=== PATIENT | female | born 2005 | race Caucasian/White ===

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

== ENCOUNTER 2024-01-16 15:59 | Outpatient (CLI) | payer BC, SELFPAY ==
--- NOTE | 2024-01-16 16:08 | XRR_ITS ---
PROCEDURE INFORMATION: Exam: XR Chest Exam date and time: 01/16/2024 4:11 PM Age: 18 years old Clinical indication: Pain; Chest pressure; Patient HX: Palpations x 1.5 wks, tightness in chest; Additional info: R07.89 - other chest pain TECHNIQUE: Imaging protocol: Radiologic exam of the chest. Views: Frontal and lateral upright, 2 views. COMPARISON: CR XR chest 2V* [id number] 02/08/2023 2:56 PM FINDINGS: Lungs: Unremarkable. No consolidation. Pleural spaces: No pleural effusion. No pneumothorax. Heart/Mediastinum: Unremarkable. No cardiomegaly. Bones/joints: Mild rightward lower thoracic spinal curvature, stable. XR/XR chest 2V* [id number] IMPRESSION: No acute cardiopulmonary abnormality identified.
[2024-01-16 16:28] LABS: Basophils # 0.1 10^3/uL (0.0-0.1); Basophils % 0.6 %; Eosinophils # 0.1 10^3/uL (0.0-0.8); Eosinophils % 0.8 %; Hematocrit 38.2 % (36-47); Lymphocytes % 25.3 %; Mean Corpuscular Volume 85.1 fl (85-98); Mean Platelet Volume 10.5 fL (7.4-10.4); Monocytes # 0.6 10^3/uL (0.2-0.9); Monocytes % 8.1 %; Neutrophils # 5.15 10^3/uL (1.8-8.0); Neutrophils % 64.9 %; Nucleated Red Blood Cells % 0 %; Platelet Count 288 10^3/cmm (157-399); Red Blood Count 4.49 10^6/uL (3.85-5.65); White Blood Count 7.93 10^3/uL (4.5-13.0)
[2024-01-16 16:55] LABS: Alanine Aminotransferase 13 U/L (0-33); Albumin Level 4.1 g/dL (3.5-5.2); Alkaline Phosphatase 74 U/L (35-105); Anion Gap 14.8 (5-19); Aspartate Amino Transferase 14 U/L (0-32); Blood Urea Nitrogen 7 mg/dL (6-20); Calcium 8.9 mg/dL (8.5-10.5); Carbon Dioxide 24 mmol/L (22-29); Chloride 101 mmol/L (98-107); Chol HDL Ratio 3.71 mg/dL (0.0-4.40); Cholesterol 204 mg/dL (0-200); Glomerular Filtration Rate 158.9 mL/min (90-130); Glucose 83 mg/dL (65-115); HDL Cholesterol 55 mg/dL (60-100); LDL Cholesterol Calculated 115 mg/dL (50-170); LDL HDL Ratio 2.09 RATIO (0.00-3.22); Osmolality Calculated 279 mOsm/kg (285-295); Potassium 3.8 mmol/L (3.5-5.1); Sodium 136 mmol/L (136-145); Thyroid Stimulating Hormone 1.89 uIU/mL (0.27-4.20); Total Bilirubin 0.2 mg/dL (0.15-1.2); Total Protein 7.1 g/dL (6.6-8.7); Triglycerides 172 mg/dL (0-150)
[2024-01-16 17:51] LABS: 25 Hydroxy Vitamin D 21 ng/mL (30-100)
== END 2024-01-16 16:00 | disposition home or self-care (01) ==
LOC: LAB 16:01
PROVIDERS: PCP Nurse Practitioner; Visit Provider Nurse Practitioner
DX: R25.2 Cramp and spasm (principal); R07.89 Other chest pain; R00.2 Palpitations
CPT/HCPCS: 36415; 71046; 80053; 80061; 82306; 83735; 84439; 84443; 85025

== ENCOUNTER 2024-01-16 21:11 | Emergency (ER) | payer BC, SELFPAY ==
[2024-01-16 21:15] VITALS: BP 141/90; PULSE 101; RESP 15; O2SAT 100
--- NOTE | 2024-01-16 21:15 | ECG_ITS ---
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 Measurements Intervals [place] Rate: 100 P: 39 NC: 169 QRS: 75 QRSD: 96 T: 20 QT: 334 QTc: 431 Interpretive Statements SINUS TACHYCARDIA POSSIBLE RIGHT VENTRICULAR CONDUCTION DELAY [RSR (QR) IN V1/V2] NONSPECIFIC T-WAVE ABNORMALITY ABNORMAL RHYTHM ECG No previous ECG available for comparison Electronically Signed On 01-18-2024 0:14:56 CDT by Nixon Gillis M.D. [id number]
[2024-01-16 21:24] VITALS: BP 112/79; PULSE 91; RESP 16; O2SAT 100
--- NOTE | 2024-01-16 21:24 | PC.NURSE ---
pt on bedside nurse monitoring
--- NOTE | 2024-01-16 21:31 | W.ED.ARRPALP ---
HPI - Arrhythmia/Palpitations General: Chief Complaint: Arrhythmia/Palpitations Stated Complaint: Palpatations Time Seen by Provider: 01/16/24 21:18 Source: patient Mode of arrival: ambulatory Limitations: no limitations History of Present Illness: Patient is a 18-year-old female who presents to the emergency department complaining of palpitations for the past week and a half. Patient has had these before when she was younger, had Holter monitor at that time but did not result in any specific etiology or pathology. She states that a week and a half ago when these palpitations came on, she also found out that she was . She had lab work and x-ray done today, however her palpitations got too severe tonight that she presented for evaluation here in the emergency department. She notes that the palpitations feel like skipped beats and that it takes her breath away. She is also noting some central chest pain. She does not report any spells of syncope, abdominal pain, nausea or vomiting, or other symptoms at this time. She does not report any specific alleviating or exacerbating factors to her palpitations, stating that they are random. MD complaint: skipped beats Onset (ago): week(s) Duration: intermittent Associated symptoms: Deny nausea or vomiting Review of Systems General: Reports: 10 or more systems reviewed and unremarkable except in HPI and below Const: Denies: fever(s), chills or fatigue Eyes: Denies: change in vision ENMT: Denies: throat pain, ear or mastoid pain or nasal discharge Card: Reports: chest pain and palpitations; Denies: swelling of feet/ankles or lightheadedness Resp: Reports: dyspnea; Denies: productive cough or wheezing GI: Denies: abdominal pain, nausea, vomiting, diarrhea or constipation : Denies: flank pain, difficulty voiding, dysuria or urinary frequency Musc: Denies: neck pain, back pain or joint pain Skin/Breast: Denies: rash Neuro: Denies: headache(s), numbness in extremities or weakness in extremities PFSH ED PFSH: Medical History No pertinent family history Surgical History No pertinent past surgical history Family History Other Asthma Migraines Social History Smoking and tobacco/nicotine status: never used tobacco/nicotine Second hand smoke exposure: Yes Alcohol intake: never Substance/Drug Use: never Adopted: No Highest education level completed: 11th Grade Pets and animals: Yes Pets & animals: dog(s) Physical Exam Const: COMMON NORMALS: no acute distress, patient oriented x3 and no limitations GENERAL APPEARANCE: cooperative, comfortable and well developed ORIENTATION/CONSCIOUSNESS: Yes awake, Yes oriented to person, Yes oriented to place and Yes oriented to time HENMT: COMMON NORMALS: normocephalic, atraumatic and hearing grossly normal bilaterally HEAD & SCALP: normocephalic and atraumatic Eye: COMMON NORMALS: Equal, round and reactive pupils present, EOMs intact bilaterally and conjunctivae normal CONJUNCTIVA: Yes conjunctivae normal PUPIL: Yes Equal, round and reactive pupils present Neck/C-Spine: COMMON NORMALS: full ROM, supple and no JVD Resp: COMMON NORMALS: normal respiratory effort, No retractions, No use of accessory muscles and clear to auscultation bilaterally AUSCULTATION: clear to auscultation bilaterally Cardio: COMMON NORMALS: no JVD, regular rate, regular rhythm, No clicks present (Cardio), No murmurs present (Cardio) and No rub (Cardio) RATE: regular rate RHYTHM: regular rhythm GI: COMMON NORMALS: Normal to inspection, nondistended, normoactive bowel sounds present, Soft to palpation and non-tender AUSCULTATION: Yes normoactive bowel sounds PALPATION: Yes Soft to palpation RECTAL EXAM: deferred Extremity: COMMON NORMALS: normal to inspection, full ROM and capillary refill normal Neuro: COMMON NORMALS: patient oriented x3, moves all extremities, no focal motor deficits and no sensory deficits noted SENSORIUM/ORIENTATION: Yes oriented to person, Yes oriented to place and Yes oriented to time Psych: COMMON NORMALS: mental status grossly normal and Normal thought process present THOUGHT PROCESS: Normal thought process present Skin: COMMON NORMALS: no rashes or lesions noted GENERAL SKIN EXAM: no rashes or lesions noted Course Vital Signs: Vital signs: Vital Signs Pulse Rate 93 01/16/24 21:54 Respiratory Rate 19 H 01/16/24 21:54 Blood Pressure 124/76 01/16/24 21:54 Pulse Oximetry 100 01/16/24 21:54 Oxygen Delivery Me thod Room Air 01/16/24 21:54 MDM - Arrhythmia/Palpitations Medical Decision Making Patient seen for palpitations for the past week and a half. History of similar when she was younger. Currently is 6 weeks based on last normal menstrual period. Vitals on arrival showed her to be slightly tachycardic, rest of her vitals unremarkable. Initial EKG obtained did reveal sinus tachycardia however there is no acute abnormal rhythms noted. During monitoring of patient she was noted to have multiple PVCs. Her blood work was all negative, including negative troponin. Chest x-ray not obtained because she had 1 performed earlier that did not reveal any acute abnormalities. Urinalysis negative. It is thought at this time that patient's palpitations likely due to to physiologic change in , however she is instructed to follow-up with OB as planned for further evaluation of this. She has not had any episodes of palpitations while here in the emergency department. Vitals have remained stable throughout ED course. No concern for concerning cardiac abnormality or etiology at this time. Care of patient discussed with supervising ED physician Dr. Becker, who agrees with disposition. Patient discharged home with strict return precautions. Lab Data 01/16/24 21:52 01/16/24 21:52 Laboratory Results WBC 8.85 10^3/uL (4.5-13.0) 01/16/24 21:52 RBC 4.59 10^6/uL (3.85-5.65) 01/16/24 21:52 Hgb 13.00 g/dL (12.4-14.8) 01/16/24 21:52 Hct 39.4 % (36-47) 01/16/24 21:52 MCV 85.8 fl (85-98) 01/16/24 21:52 MCH 28.3 pg (27-33) 01/16/24 21:52 MCHC 33.0 g/dL (30-55) 01/16/24 21:52 RDW 13.1 % (12.1-15.1) 01/16/24 21:52 Plt Count 298 10^3/cmm (157-399) 01/16/24 21:52 MPV 10.5 fL (7.4-10.4) H 01/16/24 21:52 Neut % (Auto) 66.0 % 01/16/24 21:52 Lymph % (Auto) 25.6 % 01/16/24 21:52 Gibson % (Auto) 6.9 % 01/16/24 21:52 Eos % (Auto) 0.9 % 01/16/24 21:52 Baso % (Auto) 0.5 % 01/16/24 21:52 Neut # (Auto) 5.84 10^3/uL (1.8-8.0) 01/16/24 21:52 Lymph # (Auto) 2.3 10^3/uL (1.5-6.5) 01/16/24 21:52 Gibson # (Auto) 0.6 10^3/uL (0.2-0.9) 01/16/24 21:52 Eos # (Auto) 0.1 10^3/uL (0.0-0.8) 01/16/24 21:52 Baso # (Auto) 0.0 10^3/uL (0.0-0.1) 01/16/24 21:52 Nucleated RBC % (auto) 0 % 01/16/24 21:52 Nucleated RBCs # 0.0 /100WBC 01/16/24 21:52 Sodium 137 mmol/L (136-145) 01/16/24 21:52 Potassium 3.8 mmol/L (3.5-5.1) 01/16/24 21:52 Chloride 101 mmol/L (98-107) 01/16/24 21:52 Carbon Dioxide 25 mmol/L (22-29) 01/16/24 21:52 Anion Gap 14.8 (5-19) 01/16/24 21:52 BUN 6 mg/dL (6-20) 01/16/24 21:52 Creatinine 0.5 mg/dL (0.5-0.9) 01/16/24 21:52 GFR Calculation 158.9 mL/min (90-130) H 01/16/24 21:52 Glucose 77 mg/dL (65-115) 01/16/24 21:52 Calculated Osmolality 280 mOsm/kg (285-295) L 01/16/24 21:52 Calcium 9.0 mg/dL (8.5-10.5) 01/16/24 21:52 Magnesium 1.9 mg/dL (1.7-2.2) 01/16/24 21:52 Total Bilirubin 0.2 mg/dL (0.15-1.2) 01/16/24 21:52 AST 13 U/L (0-32) 01/16/24 21:52 ALT 13 U/L (0-33) 01/16/24 21:52 Alkaline Phosphatase 77 U/L (35-105) 01/16/24 21:52 Troponin T Baseline < 6 ng/L (0-10) 01/16/24 21:52 Total Protein 6.5 g/dL (6.6-8.7) L 01/16/24 21:52 Albumin 4.1 g/dL (3.5-5.2) 01/16/24 21:52 Globulin 2.4 g/dL (1.3-4.6) 01/16/24 21:52 TSH 2.11 uIU/mL (0.27-4.20) 01/16/24 21:52 HCG, Qual Positive (Negative) H 01/16/24 21:52 Urine Color Yellow (Yellow) 01/16/24 21:40 Urine Appearance Clear (CLEAR) 01/16/24 21:40 Urine pH 6 (5-7) 01/16/24 21:40 Ur Specific [place] 1.010 (1.005-1.030) 01/16/24 21:40 Urine Protein Neg (Negative) 01/16/24 21:40 Urine Glucose (UA) Norm (Normal) 01/16/24 21:40 Urine Ketones Negative (Negative) 01/16/24 21:40 Urine Blood Neg (Negative) 01/16/24 21:40 Urine Nitrate Negative (Negative) 01/16/24 21:40 Urine Bilirubin Neg (Negative) 01/16/24 21:40 Urine Urobilinogen Norm mg/dL (Negative) 01/16/24 21:40 Ur Leukocyte Esterase Negative (Negative) 01/16/24 21:40 No radiology studies performed this visit Discharge Plan Discharge Patient Disposition: Home Clinical Impression: Palpitations Condition: Stable Prescriptions: No Action paroxetine HCl 10 mg tablet 10 mg PO DAILY Qty: 30 2RF Rx Instructions: 1 tab by mouth daily multivitamin with iron Tablet 1 tab PO DAILY albuterol sulfate [ProAir HFA] 90 mcg/actuation HFA aerosol inhaler 2 puff inhalation Q4H PRN (Reason: shortness of breath, chest tightness or wheezing) Qty: 8.5 3RF cetirizine 10 mg tablet 10 mg PO DAILY hydroxyzine HCl 10 mg tablet 5 - 10 mg PO 3XD PRN (Reason: Anxiety) FeroSul 325 mg (65 mg iron) tablet 325 mg PO TID Discharge Orders: Discharge ED (Routine); Ordered 01/16/24 Ordered By: Cisco Wray Referrals: Palak Sanchez FNP-BC [Primary Care Provider] - Discharge Diet: Usual diet Discharge Activity: Increase activity as tolerated Patient Instructions: Heart Palpitations (ED) Activity Restrictions/Additional Instructions: Follow-up with OB as discussed. Plenty of fluids. If you develop any new or concerning symptoms, please return for reevaluation. Coding Level of Care Code ED Paid Search Marketing Strategist for Estephania Reeder
[2024-01-16 21:54] VITALS: BP 124/76; PULSE 93; RESP 19; O2SAT 100
[2024-01-16 22:18] LABS: Basophils % 0.5 %; Eosinophils # 0.1 10^3/uL (0.0-0.8); Eosinophils % 0.9 %; Hematocrit 39.4 % (36-47); Lymphocytes # 2.3 10^3/uL (1.5-6.5); Lymphocytes % 25.6 %; Mean Corpuscular Hemoglobin 28.3 pg (27-33); Mean Corpuscular Volume 85.8 fl (85-98); Mean Platelet Volume 10.5 fL (7.4-10.4); Monocytes # 0.6 10^3/uL (0.2-0.9); Monocytes % 6.9 %; Neutrophils # 5.84 10^3/uL (1.8-8.0); Nucleated Red Blood Cells % 0 %; Platelet Count 298 10^3/cmm (157-399); Red Blood Count 4.59 10^6/uL (3.85-5.65); Red Cell Distribution Width 13.1 % (12.1-15.1); White Blood Count 8.85 10^3/uL (4.5-13.0)
[2024-01-16 22:19] LABS: Add Urine Microscopic? NO; Charge for UA Resulting for Rev
[2024-01-16 22:24] LABS: Bilirubin Urine Neg (Negative); Blood Urine Neg (Negative); Glucose Urine UA Norm (Normal); Ketones Urine Negative (Negative); Leukocyte Esterase Urine Negative (Negative); Nitrate Urine Negative (Negative); Protein Urine Neg (Negative); Urine Appearance Clear (CLEAR); Urine Color Yellow (Yellow); Urobilinogen Urine Norm (Negative); pH Urine 6 (5-7)
[2024-01-16 22:36] LABS: Troponin(5th) Baseline < 6 ng/L (0-10)
[2024-01-16 22:46] LABS: Alanine Aminotransferase 13 U/L (0-33); Albumin Level 4.1 g/dL (3.5-5.2); Alkaline Phosphatase 77 U/L (35-105); Anion Gap 14.8 (5-19); Aspartate Amino Transferase 13 U/L (0-32); Blood Urea Nitrogen 6 mg/dL (6-20); Carbon Dioxide 25 mmol/L (22-29); Chloride 101 mmol/L (98-107); Creatinine Clr Calc Pharmacy 216.2067; Globulin 2.4 g/dL (1.3-4.6); Glomerular Filtration Rate 158.9 mL/min (90-130); Glucose 77 mg/dL (65-115); Magnesium 1.9 mg/dL (1.7-2.2); Osmolality Calculated 280 mOsm/kg (285-295); Potassium 3.8 mmol/L (3.5-5.1); Sodium 137 mmol/L (136-145); Thyroid Stimulating Hormone 2.11 uIU/mL (0.27-4.20); Total Bilirubin 0.2 mg/dL (0.15-1.2); Total Protein 6.5 g/dL (6.6-8.7)
[2024-01-16 22:48] LABS: HCG, Serum Qual Positive (Negative)
[2024-01-16 23:44] VITALS: BP 114/68; PULSE 81; RESP 20; O2SAT 81
== END 2024-01-16 23:45 | disposition home or self-care (01) ==
PROVIDERS: Emergency Provider Physician Assistant; PCP Nurse Practitioner
DX: R00.2 Palpitations (principal); Z77.22 Contact with and (suspected) exposure to environmental tobacco smoke (acute) (chronic)
CPT/HCPCS: 36415; 80053; 81003; 83735; 84443; 84484; 84703; 85025; 93005; 99284

== ENCOUNTER 2024-02-13 13:55 | Outpatient (CLI) | payer BC, MEDICAID, SELFPAY ==
--- NOTE | 2024-02-13 14:00 | USCV_ITS ---
Khalida Delgadillo Age: 18 Gender: F : 2005 Exam Date: 02/13/2024 14:06 Ordering Phys: Palak Sanchez STRATEGY SPECIALIST-BC Technologist: Exam Location[place] [facility] [place]: irregular heart beat BP: 125 / 78 HR: 93 Rhythm: Sinus Technical Quality: Adequate MEASUREMENTS (Male / Female) Normal Values 2D ECHO LV Diastolic Diameter PLAX 4.3 cm 4.2 - 5.9 / 3.9 - 5.3 cm IVS Diastolic Thickness 1.1 cm 0.6 - 1.0 / 0.6 - 0.9 cm IVS Systolic Thickness 1.6 cm LVPW Diastolic Thickness 1.1 cm 0.6 - 1.0 / 0.6 - 0.9 cm LVPW Systolic Thickness 1.6 cm LVOT Diameter 2.0 cm LV Ejection Fraction 2D Teich 67.5 % LV Ejection Fraction MOD 4C 59.7 % LA Diameter 3.0 cm RA Systolic Volume 4C AL 49.7 ml RA Systolic Volume 4C MOD 45.1 ml Aorta at Sinotubular Diameter 1.9 cm M-MODE LA Ao Ratio MM 1.2 AV Cusp Separation MM 2.2 cm DOPPLER AV Peak Velocity 143.0 cm/s LVOT Peak Velocity 105.0 cm/s AV Area Cont Eq vti 2.8 cm squared AV Area Cont Eq pk 2.3 cm squared MV Peak Velocity 105.0 cm/s MV Area PHT 4.9 cm squared Mitral E to A Ratio 1.6 TV Peak Velocity 139.5 cm/s TR Peak Velocity 149.0 cm/s TR Peak Gradient 8.9 mmHg TV Peak E Velocity 124.0 cm/s Right Atrial Pressure 3.0 mmHg Pulmonary Artery Systolic Pressu 11.9 mmHg PV Peak Velocity 136.0 cm/s FINDINGS Left Ventricle Left ventricle is normal in size. LV systolic function is normal with EF 55 to 60%. No regional wall motion arteries are seen Right Ventricle Normal in size and function Right Atrium Normal in size Left Atrium Normal in size Mitral Valve Structurally normal mitral valve. Trace mitral regurgitation Aortic Valve Structurally normal aortic valve. No significant stenosis or regurgitation. Tricuspid Valve Insufficient TR jet to calculate RVSP Pulmonic Valve Not well-visualized Pericardium Normal Aorta Normal in size IVC Grossly normal CONCLUSIONS LV systolic function is normal with EF of 55 to 60%. Trace mitral regurgitation No comparison studies are available Ananth Pichardo MD (Electronically Signed) Final Date: 27 February 2024 18:05 S
== END 2024-02-13 13:56 | disposition home or self-care (01) ==
LOC: RAD 13:56
PROVIDERS: PCP Nurse Practitioner; Visit Provider Nurse Practitioner
DX: R00.2 Palpitations (principal); I34.0 Nonrheumatic mitral (valve) insufficiency
CPT/HCPCS: 93306

== ENCOUNTER 2024-06-01 18:32 | Outpatient (CLI) | payer BC, MEDICAID, SELFPAY ==
[2024-06-01] VITALS (10 sets, daily range): BP systolic 110–133; BP diastolic 53–73; PULSE 71–96; RESP 18; O2SAT 99; BMI 38.9
[2024-06-01] MEDS: ibuprofen 800 mg tablet PO (19:24)
[2024-06-01] MEDS: promethazine 25 mg/mL SDV 1 mL IM (20:49)
[2024-06-01] MEDS: diphenhydrAMINE 50 mg/mL SDV 1mL 25 MG IM (20:50)
== END 2024-06-01 21:25 | disposition home or self-care (01) ==
LOC: OPOB 18:36 → OBGYN 18:37
PROVIDERS: PCP Nurse Practitioner; Visit Provider Family Medicine
DX: O36.8190 Decreased fetal movements, unspecified trimester, not applicable or unspecified (principal); Z3A.00 Weeks of gestation of pregnancy not specified
CPT/HCPCS: 59025; 96372; 99211; J1200; J2550

== ENCOUNTER 2024-06-03 16:42 | Outpatient (CLI) | payer BC, MEDICAID, SELFPAY ==
[2024-06-03 16:57] VITALS: BP 111/59; PULSE 89; RESP 16; TEMP 36.6
== END 2024-06-03 17:35 | disposition home or self-care (01) ==
LOC: OPOB 16:43 → OBGYN 16:43
PROVIDERS: PCP Nurse Practitioner; Visit Provider Family Medicine
DX: O26.899 Other specified pregnancy related conditions, unspecified trimester (principal); Z3A.00 Weeks of gestation of pregnancy not specified; R51.9 Headache, unspecified; H53.9 Unspecified visual disturbance
CPT/HCPCS: 99211

== ENCOUNTER 2024-06-03 17:15 | Emergency (ER) | payer BC, MEDICAID, SELFPAY ==
[2024-06-03 17:24] VITALS: BP 106/73; PULSE 91; RESP 18; TEMP 36.9; O2SAT 96; BMI 38.4
--- NOTE | 2024-06-03 19:31 | ED_ITS ---
HPI - Headache General: Chief Complaint: Headache Stated Complaint: migraine (26 wks preg) OB sent Time Seen by Provider: 06/03/24 18:58 Source: patient Mode of arrival: ambulatory Limitations: no limitations History of Present Illness: 18-year-old female is currently 26 weeks states that she had a history of headaches in the past states she has had a migraine for the last 4 to 5 days. States gradually worsened and started very gradually denies any thunderclap headache she has photophobia and phonophobia rates her headache an 8 out of 10 currently she denies any fever denies any neck stiffness or pain Associated symptoms: Deny chest pain, fever(s), nausea, rash or vomiting Related Data Home Medications Medication Instructions Recorded Confirmed hydroxyzine HCl 10 mg tablet 5 - 10 mg PO 3XD PRN Anxiety 08/30/23 06/01/24 docosahexaenoic acid 200 mg 200 mg PO DAILY 02/21/24 06/01/24 capsule ( DHA) sertraline 50 mg tablet 50 mg PO DAILY 02/21/24 06/01/24 cetirizine 10 mg tablet 10 mg PO DAILY 06/01/24 06/01/24 propranolol 40 mg tablet 40 mg PO BID 06/01/24 06/01/24 Allergies Allergy/AdvReac Type Severity Reaction Status Date / Time amoxicillin [From Augmentin] Allergy rash Verified 06/03/24 17:28 clavulanic acid Allergy rash Verified 06/03/24 17:28 [From Augmentin] orphenadrine [From Norflex] Allergy ALGY-Rash Verified 06/03/24 17:28 tramadol AdvReac Intermediate ADR-Migrain Verified 06/03/24 17:28 e Review of Systems Const: Denies: fever(s), chills, body aches or change in appetite Eyes: Denies: blurry vision ENMT: Denies: throat pain or dental pain Card: Denies: chest pain Resp: Denies: dyspnea GI: Denies: abdominal pain, nausea, vomiting or diarrhea Musc: Denies: neck pain or back pain Skin/Breast: Denies: rash Neuro: Reports: headache(s) PFSH ED PFSH: Medical History No pertinent family history Surgical History No pertinent past surgical history Family History Other Asthma Migraines Social History Smoking and tobacco/nicotine status: never used tobacco/nicotine Second hand smoke exposure: Yes Alcohol intake: never Substance/Drug Use: never Adopted: No Highest education level completed: 11th Grade Pets and animals: Yes Pets & animals: dog(s) Physical Exam Const: COMMON NORMALS: no acute distress, patient oriented x3 and healthy appearing HENMT: COMMON NORMALS: normocephalic and atraumatic HEAD & SCALP: normocephalic and atraumatic Eye: COMMON NORMALS: Equal, round and reactive pupils present and EOMs intact bilaterally PUPIL: Yes Equal, round and reactive pupils present Neck/C-Spine: COMMON NORMALS: full ROM, supple and no meningeal signs Chest: COMMONS NORMALS: normal inspection of the chest Resp: COMMON NORMALS: normal respiratory effort Cardio: COMMON NORMALS: regular rate, regular rhythm and No murmurs present (Cardio) RATE: regular rate RHYTHM: regular rhythm Extremity: COMMON NORMALS: normal to inspection and full ROM Neuro: COMMON NORMALS: patient oriented x3, moves all extremities and no focal motor deficits MENINGEAL SIGNS: Yes no meningeal signs Psych: COMMON NORMALS: mental status grossly normal, Normal thought process present and cooperative THOUGHT PROCESS: Normal thought process present Skin: COMMON NORMALS: no rashes or lesions noted and no wounds GENERAL SKIN EXAM: no rashes or lesions noted Course Vital Signs: Vital signs: Vital Signs Temperature 98.5 F 06/03/24 17:24 Pulse Rate 87 06/03/24 19:50 Respiratory Rate 16 06/03/24 19:50 Blood Pressure 123/58 06/03/24 19:50 Pulse Oximetry 96 06/03/24 19:50 Oxygen Delivery Me thod Room Air 06/03/24 19:50 MDM - Headache Medical Decision Making Patient presents here with headaches likely migraine headache she feels much improved here no signs of subarachnoid hemorrhage or meningitis patient stable for discharge follow-up PCP return if worsening she understands and agrees to plan. Medical Records I reviewed the patient's medical records. No radiology studies performed this visit Discharge Plan Discharge Patient Disposition: Home Clinical Impression: Headache Condition: Stable Prescriptions: No Action DHA 200 mg capsule 200 mg PO DAILY sertraline 50 mg tablet 50 mg PO DAILY cetirizine 10 mg Tablet 10 mg PO DAILY propranolol 40 mg Tablet 40 mg PO BID hydroxyzine HCl 10 mg tablet 5 - 10 mg PO 3XD PRN (Reason: Anxiety) Discharge Orders: Discharge ED (Routine); Ordered 06/03/24 Ordered By: Robert Holcomb Referrals: Palak Sanchez FNP-CECE [Primary Care Provider] - Discharge Diet: Advance as tolerated Discharge Activity: Resume usual activity Patient Instructions: General Headache (ED) Coding Level of Care Code ED General Assembler for Estephania Reeder
[2024-06-03 19:50] VITALS: BP 123/58; PULSE 87; RESP 16; O2SAT 96
[2024-06-03] MEDS: diphenhydrAMINE 50 mg/mL SDV 1mL IVP (19:54)
[2024-06-03] MEDS: metoclopramide 5 mg/mL SDV 2 mL 10 MG IVP (19:55)
[2024-06-03 20:28] VITALS: BP 122/68; PULSE 91; RESP 16; O2SAT 97
== END 2024-06-03 20:29 | disposition home or self-care (01) ==
PROVIDERS: Emergency Provider Emergency Medicine; PCP Nurse Practitioner
DX: R51.9 Headache, unspecified (principal); Z3A.28 28 weeks gestation of pregnancy
CPT/HCPCS: 96374; 96375; 99284; J1200; J2765

== ENCOUNTER 2024-06-17 16:22 | Oncology outpatient (recurring) (ONCR) | payer BC, SELFPAY ==
[2024-06-17 00:30] VITALS: BP 118/78; PULSE 94; RESP 16; TEMP 36.6; O2SAT 96
[2024-06-17] MEDS: rho(d) immune globulin 1,500 unit Syringe 1500 UNIT IM (16:33)
[2024-06-17 16:41] VITALS: BP 118/78; PULSE 94; RESP 16; TEMP 36.4; O2SAT 96
== END 2024-06-22 23:59 | disposition home or self-care (01) ==
LOC: ONCMED 16:22
PROVIDERS: PCP Nurse Practitioner; Visit Provider Family Medicine
DX: O26.893 Other specified pregnancy related conditions, third trimester (principal); Z79.899 Other long term (current) drug therapy; Z67.91 Unspecified blood type, Rh negative
CPT/HCPCS: 96372; J2790

== ENCOUNTER 2024-08-17 21:43 | Outpatient (CLI) | payer BC, MEDICAID, SELFPAY ==
[2024-06-03 16:57] VITALS: RESP 16; TEMP 36.6
[2024-08-17] VITALS (9 sets, daily range): BP systolic 109–114; BP diastolic 59; PULSE 80–100; RESP 16; TEMP 35.6; O2SAT 97–98; BMI 40.6
== END 2024-08-17 22:28 | disposition home or self-care (01) ==
LOC: OPOB 21:43 → OBGYN 21:44
PROVIDERS: PCP Nurse Practitioner; Visit Provider Family Medicine
DX: O16.9 Unspecified maternal hypertension, unspecified trimester (principal); Z3A.00 Weeks of gestation of pregnancy not specified; R10.9 Unspecified abdominal pain; R51.9 Headache, unspecified
CPT/HCPCS: 59025; 99211

== ENCOUNTER 2024-08-23 14:54 | Outpatient (CLI) | payer BC, MEDICAID, SELFPAY ==
[2024-08-23 15:05] VITALS: BMI 41.9
[2024-08-23 15:06] VITALS: BP 131/70; PULSE 95
[2024-08-23 15:26] VITALS: BP 117/58; PULSE 87
[2024-08-23 15:46] VITALS: BP 121/60; PULSE 97
[2024-08-23 16:06] VITALS: BP 121/59; PULSE 90
== END 2024-08-23 16:15 | disposition home or self-care (01) ==
LOC: OPOB 14:54 → OBGYN 14:55
PROVIDERS: PCP Family Medicine; Visit Provider Family Medicine
DX: O26.899 Other specified pregnancy related conditions, unspecified trimester (principal); Z3A.00 Weeks of gestation of pregnancy not specified; N89.8 Other specified noninflammatory disorders of vagina
CPT/HCPCS: 59025; 83986; 99211

== ENCOUNTER 2024-08-25 19:44 | Outpatient (CLI) | payer BC, MEDICAID, SELFPAY ==
[2024-08-25] VITALS (57 sets, daily range): BP systolic 102–139; BP diastolic 56–81; PULSE 86–117; RESP 16; TEMP 35.5–36.1; O2SAT 96–100; BMI 41.8
== END 2024-08-25 23:24 | disposition home or self-care (01) ==
LOC: OPOB 19:45 → OBGYN 19:45
PROVIDERS: PCP Family Medicine; Visit Provider Family Medicine
DX: O26.899 Other specified pregnancy related conditions, unspecified trimester (principal); Z3A.00 Weeks of gestation of pregnancy not specified; R10.9 Unspecified abdominal pain
CPT/HCPCS: 59025; 99211

== ENCOUNTER 2024-09-03 19:29 | Inpatient (IN) | payer BC, MEDICAID, SELFPAY ==
--- NOTE | 2024-08-20 11:37 | ANES.PREANE2 ---
Pre-Anesthetic Assessment Height/Weight: Height 1.65 m Epdiural Familial anesthetic complications: None Was Beta Jeanne taken within 24 hours: N/A Was Clonidine taken within 24 hours: N/A Social No alcohol and No tobacco Exam alert, oriented x 3, clear to auscultation bilaterally and regular rate & rhythm Airway Mallampati: Class I Dentition: full Pulmonary Asthma GI Gastroesophageal Reflux Disease Metabolic Morbid Obesity Anesthetic Plan ASA status: 2 Anesthesia: Regional (specify below) Risk of > 500 ml blood loss (7ml/kg in children): Yes, adequate IV access and fluids planned Medications/Allergies Home Medications Medication Instructions Recorded Confirmed Last Taken Type docosahexaenoic acid 200 mg 200 mg PO DAILY 02/21/24 08/17/24 08/17/24 History capsule ( DHA) sertraline 50 mg tablet 50 mg PO DAILY 02/21/24 08/17/24 08/17/24 History cetirizine 10 mg tablet 10 mg PO DAILY 06/01/24 08/17/24 08/17/24 History propranolol 40 mg tablet 40 mg PO BID 06/01/24 08/17/24 08/17/24 History famotidine 20 mg PO BID 08/17/24 08/17/24 08/17/24 History famotidine 20 mg tablet 20 mg 08/17/24 Unknown History Allergies Allergy/AdvReac Type Severity Reaction Status Date / Time amoxicillin [From Augmentin] Allergy rash Verified 08/17/24 22:15 clavulanic acid Allergy rash Verified 08/17/24 22:15 [From Augmentin] orphenadrine [From Norflex] Allergy ALGY-Rash Verified 08/17/24 22:15 tramadol AdvReac Intermediate ADR-Migrain Verified 08/17/24 22:15 e [facility] Anesthesia Medical History No pertinent family history Surgical History No pertinent past surgical history Family History Other Asthma Migraines Social History Smoking and tobacco/nicotine status: never used tobacco/nicotine Second hand smoke exposure: Yes Alcohol intake: never Substance/Drug Use: never Adopted: No Highest education level completed: 11th Grade Pets and animals: Yes Pets & animals: dog(s) Data Anesthesia Cardiac Studies: Echocardiogram 02/13/24 Holter Monitor 06/04/24
--- OUTSIDE RECORDS SUMMARY | 2024-09-03 19:33 | XMS_ITS | Clinical Summary ---
Author Organization [facility] Address [address] [address] Phone Care Team Providers Care Resource Recovery Specialist Name Role Phone Unavailable Primary Care Provider Unavailabl e Social History Tobacco Use Types Packs/Day Years Used Date Smoking Tobacco: Never Assessed Comments Unknown Sex and Gender Information Value Date Recorded Sex Assigned at Not on file Legal Sex Female 12:48 PM CDT Gender Identity Not on file Sexual Orientation Not on file Plan of Treatment Health Maintenance Due Date Last Done Comments CHLAMYDIA SCREENING (ANNUAL) 11-24 YEARS 10/20/2015 HPV VACCINES (1 - 3-dose series) 10/20/2019 DTAP/TDAP/TD VACCINES (1 - Tdap) 10/20/2023 HEPATITIS B VACCINES (1 of 3 - 19+ 3-dose series) 10/20/2023 INFLUENZA VACCINE (#1) 2024 PNEUMOCOCCAL VACCINE 0-64 YEARS Aged Out No longer eligible based on patient's age to complete this topic
--- OUTSIDE RECORDS SUMMARY | 2024-09-03 19:33 | XMS_ITS | Continuity of Care Document ---
Author Organization [facility] Ramón Arnold [facility] Sergio Galan, [facility] ([facility]) Address [address] [place] [address] Care Team Providers Care Water Rights Specialist Name Role Phone BREANNA EVANGELISTA Primary Care Provider Unavaila ble Assessment No assessment recorded. Plan of Treatment Reminders Order Date Submit Date Provider Last Modified By Organization Details Last Modified Time Details Appointments RETURN OB 2024 03:00P M Breanna Evangelista MD Not available Not available Not available RETURN OB 2024 03:50P Eliot Evangelista MD Not available Not available Not available Lab streptoco ccus group B, culture, unspecifi ed specimen 2024 025 [facility], [address] [place] [address] 248, [facility] [address] [place], [address], 08/11/2024 07:09:12 Referral None recorded. Procedures None recorded. Surgeries None recorded. Imaging None recorded. Medication Orders None recorded. Patient TargetsNo targets recorded. Patient InstructionsNo instructions recorded. Reason for Referral None Reported. Results Created Date Observation Date Name Description Value Unit Range Abnormal Flag Note LastModifiedBy Organization Detail LastModifiedTime 04/25/2004/23/2024 US, obste tric, 2nd trime ster No observ ation record ed. [facility] [address] [place], [address], 04/29/2024 17:11:42 06/05/20 elect rocar diogr am No observ ation record ed. [email or web address] Not Available 2023 11:36:57 Result Notes None recorded. Problems Name Problem SNOMED Code Status Onset Date Resolution Date Notes Provider Name and Address Organization Details Recorded Time Palpitation s 95529855 Active 2023 Lorenzo Evans MD [address] [place] [address], [phone], [facility] 4 16:14:03 Normal in multigravid a 4043266282507 06 Active 2023 LANDON rizo [facility] 4 18:33:04 Normal in multigravid a 3716363177554 06 Active 2023 LANDON rizo [facility] 4 18:33:04 Cough 30530126 Active 2024 Lorenzo Evans MD [address] [place] [address], [phone] 5, [facility] 5 15:49:05 Viral upper respiratory tract infection 557768245 Active 2024 Lorenzo Evans MD [address] [place] [address], [phone], [facility] 5 15:49:12 Problem Notes None recorded. Medical Equipment None Reported. Allergies Allergen ID Allergen Name Allergen Category Reaction Reaction Severity Criticality Documentation Date Start Date Code Code System Note Provider Name and Address Organization Details Recorded Time 43399 Augmentin medicatio n Not available Not available Not available 08/30/2023 59971 2 RxNorm TREBA NEUSCHWAN CHINMAY sallie [facility] 4 14:51:46 31368 Norflex medicatio n Not available Not available Not available 08/30/2023 33826 4 RxNorm TREBA NEUSCHWAN CHINMAY sallie [facility] 4 14:52:14 24736 tramadol medicatio n Not available Not available Not available 02/16/2024 24826 RxNorm HARVINDER MOY [facility], [facility] 14:26:37 Medications Name Sig Start Date Stop Date Status Note LastModified by Organization Details LastModified Time vitd3 2000iusft [id number] take 1 capsule BY MOUTH EVERY DAY FOR 42 DAYS 05/07 completed Not Available Not Available Not Available paroxetin e 10 mg tablet TAKE 1 TABLET BY MOUTH EVERY DAY 02/15 completed dose increase Not Available Not Available Not Available clindamyc in HCl 300 mg capsule TAKE 1 CAPSULE BY MOUTH 4 TIMES DAILY FOR 7 DAYS 02/15 completed Not Available Not Available Not Available cetirizin e 10 mg tablet TAKE 1 TABLET BY MOUTH EVERY DAY active Not Available Not Available No t Available ibuprofen 800 mg tablet TAKE 1 TABLET BY MOUTH EVERY 8 HOURS NEEDED FOR PAIN 02/15 completed Not Available Not Available Not Available hydrocodo ne 5 mg-acetam inophen 325 mg tablet TAKE 1 TABLET BY MOUTH EVERY 6 HOURS NEEDED FOR PAIN FOR FIVE DAYS 02/15 completed Not Available Not Available Not Available prednison e 20 mg tablet TAKE 2 TABLETS BY MOUTH ONCE DAILY FOR 4 DAYS THEN 1 ONCE DAILY UNTIL GONE 02/15 completed Not Available Not Available Not Available sertralin e 100 mg tablet TAKE 1 TABLET BY MOUTH EVERY DAY 2024 active vo JR/tn Not Available Not Available Not Avai lable naproxen 250 mg tablet TAKE 1 TABLET BY MOUTH TWICE DAILY NEEDED FOR PAIN do not take with other nsaids 02/15 completed Not Available Not Available Not Available sulfameth oxazole 800 mg-trimet hoprim 160 mg tablet TAKE 1 TABLET BY MOUTH TWICE DAILY for 10 days 02/15 completed Not Available Not Available Not Available tramadol 50 mg tablet TAKE 1 TABLET BY MOUTH EVERY 6 HOURS NEEDED FOR PAIN 02/15 completed Not Available Not Available Not Available propranol ol 40 mg tablet TAKE 1 TABLET BY MOUTH TWICE DAILY NEEDED 2024 active vo JR/tn Not Available Not Available Not Avai lable famotidin e 20 mg tablet TAKE 1 TABLET BY MOUTH TWICE DAILY active Not Available Not Available No t Available methocarb barbra 750 mg tablet TAKE 1 TABLET BY MOUTH EVERY 8 HOURS NEEDED FOR MUSCLE SPASMS or pain 08/30 completed Not Available Not Available Not Available paroxetin e 20 mg tablet TAKE 1 TABLET BY MOUTH EVERY DAY 03/12 completed switched meds Not Available Not Available Not Available erythromy royal 5 mg/gram (0.5 %) eye ointment apply into THE eye(s) FOUR TIMES DAILY for 7 days 02/15 completed Not Available Not Available Not Available mupirocin 2 % topical ointment apply a thin layer TO clean dry SKIN of affected areas THREE TIMES DAILY FOR SEVEN DAYS 02/15 completed Not Available Not Available Not Available azelastin e 137 mcg (0.1 %) nasal spray USE 1 SPRAY IN EACH NOSTRIL TWICE DAILY USE STERILE SALINE FIRST 08/30 completed Not Available Not Available Not Available ibuprofen 600 mg tablet TAKE 1 TABLET BY MOUTH THREE TIMES DAILY NEEDED FOR PAIN 08/30 completed Not Available Not Available Not Available albuterol sulfate HFA 90 mcg/actua tion aerosol inhaler inhale TWO puffs BY MOUTH EVERY 4 HOURS as needed for SHORTNES S OF BREATH, CHEST tightnes s or wheezing 02/15 completed Not Available Not Available Not Available propranol ol 20 mg tablet 05/21 completed Not Available Not Available Not Available hydroxyzi ne HCl 10 mg tablet TAKE ONE-HALF TO 1 TABLET BY MOUTH EVERY 6 TO 8 HOURS as needed for breakthr ough FOR ANXIETY active Not Available Not Available No t Available ondansetr on 4 mg disintegr ating tablet DISSOLVE ONE TABLET BY MOUTH EVERY 8 HOURS NEEDED FOR NAUSEA AND VOMITING FOR THREE DAYS 02/15 completed Not Available Not Available Not Available sertralin e 50 mg tablet TAKE 1 TABLET BY MOUTH EVERY DAY 04/10 completed Not Available Not Available Not Available dicyclomi ne 10 mg capsule take 1 capsule BY MOUTH THREE TIMES DAILY 30 MINUTES BEFORE MEALS 08/30 completed Not Available Not Available Not Available azithromy royal 500 mg tablet TAKE 1 TABLET BY MOUTH EVERY DAY for 5 days 08/30 completed Not Available Not Available Not Available escitalop makenzie 20 mg tablet TAKE 1 TABLET BY MOUTH EVERY DAY 02/15 completed Not Available Not Available Not Available sodium fluoride 1.1 % dental cream brush with pea sized AMOUNT FOR TWO minutes TWICE DAILY. EXPECTOR ATE OUT excess. DO not RINSE. nothing by MOUTH FOR 30 minutes AFTER USE 08/30 completed Not Available Not Available Not Available active Not Available Not Avai lable Not Available FeroSul 325 mg (65 mg iron) tablet TAKE 1 TABLET BY MOUTH THREE TIMES DAILY FOR THREE MONTHS. take with orange JUICE FOR BETTER absorpti on 02/15 completed Not Available Not Available Not Available Isibloom 0.15 mg-0.03 mg tablet TAKE ONE TABLET BY MOUTH DIRECTED 08/30 completed Not Available Not Available Not Available Vitals Date Recorded Body height Body mass index (BMI) Body mass index (BMI) Percentile per age and sex Body weight Oxygen saturation Oxygen saturation in Arterial blood by Pulse oximetry Heart rate Respiratory rate Body temperature Systolic blood pressure Diastolic blood pressure Provider Name and Address Organization Details Last Updated DateTime 5 167.64 cm 38.8 kg/m2 98.24 % 967650. 913094 g 99 % 99 % 97 /min 18 /min 98.7 [degF] 110 mm[Hg] 66 mm[Hg] LANDON LANZA [facility] 5 14:30:23 Social History Question Answer Notes LastModified by Organizat ion Details LastModified Time Tobacco Smoking Status Never Smoker HARVINDER rizo [facility] 08/30/2023 14:55:10 What Is Your Level Of Alcohol Consumption? None Information not available 08/30/2023 If You Are , What Was Your Level Of Alcohol Consumption Prior To ? None Information not available 02/16/2024 What Is Your Relationship Status? Domestic Partner Information not available 08/30/2023 Are You Sexually Active? Yes Information not available 08/30/2023 Do You Use Any Illicit Or Recreational Drugs? No Information not available 08/30/2023 Sex: Unknown Functional Status None recorded. Mental Status None recorded. Family History Relationship Description Onset Age of this Age Resolved Age Notes LastModified by Organization Details LastModified Time Mother Hypertensive disorder [email or web address] Not available 14:54:50 Medical History No medical history recorded. Gynecological HistoryNo gynecological history recorded. Obstetrics History GPAL:G 2 P 0 0 1 0 Type Value Induced 1 Total 2 Immunizations Vaccine Type Date Status Note Provider Nam e and Address Organization Details Recorded Time Hib, unspecified formulation 6 completed TREBA NEUSCHWANDER null, [facility] 08/30/2023 14:51:27 Hib, unspecified formulation 5 completed TREBA NEUSCHWANDER null, [facility] 08/30/2023 14:51:27 Hib, unspecified formulation 5 completed TREBA NEUSCHWANDER null, [facility] 08/30/2023 14:51:27 meningococcal B, OMV 2 completed TREBA NEUSCHWANDER null, [facility] 08/30/2023 14:51:27 meningococcal B, OMV 2 completed TREBA NEUSCHWANDER null, [facility] 08/30/2023 14:51:27 meningococcal ACWY, unspecified formulation 7 completed [facility] 08/30/2023 14:51:27 MMR 9 completed TREBA NEUSCHWANDER null, [facility] 08/30/2023 14:51:27 MMR 6 completed TREBA NEUSCHWANDER null, [facility] 08/30/2023 14:51:27 meningococcal conjugate quadrivalent, MenACWY-TT (MCV4) 2 completed TREBA NEUSCHWANDER null, [facility] 08/30/2023 14:51:27 pneumococcal conjugate PCV 7 5 completed TREBA NEUSCHWANDER null, [facility] 08/30/2023 14:51:27 Tdap 7 completed TREBA NEUSCHWANDER null, [facility] 08/30/2023 14:51:27 varicella 6 completed TREBA NEUSCHWANDER null, [facility] 08/30/2023 14:51:27 varicella 9 completed TREBA NEUSCHWANDER null, [facility] 08/30/2023 14:51:27 Hep B, unspecified formulation 5 completed [facility] 08/30/2023 14:51:27 Hep B, unspecified formulation 5 completed TREBA NEUSCHWANDER null, [facility] 08/30/2023 14:51:27 Hep B, unspecified formulation 5 completed TREBA NEUSCHWANDER null, [facility] 08/30/2023 14:51:27 HPV, unspecified formulation 8 completed [facility] 08/30/2023 14:51:27 HPV, unspecified formulation 7 completed TREBA NEUSCHWANDER null, [facility] 08/30/2023 14:51:27 pneumococcal, unspecified formulation 9 completed TREBA NEUSCHWANDER null, [facility] 08/30/2023 14:51:27 pneumococcal, unspecified formulation 6 completed TREBA NEUSCHWANDER null, [facility] 08/30/2023 14:51:27 pneumococcal, unspecified formulation 5 completed TREBA NEUSCHWANDER null, [facility] 08/30/2023 14:51:27 polio, unspecified formulation 9 completed TREBA NEUSCHWANDER null, [facility] 08/30/2023 14:51:27 polio, unspecified formulation 5 completed TREBA NEUSCHWANDER null, [facility] 08/30/2023 14:51:27 polio, unspecified formulation 5 completed TREBA NEUSCHWANDER null, [facility] 08/30/2023 14:51:27 Hib (PRP-T) 5 completed TREBA NEUSCHWANDER null, [facility] 08/30/2023 14:51:27 DTaP, unspecified formulation 9 completed TREBA NEUSCHWANDER null, [facility] 08/30/2023 14:51:27 DTaP, unspecified formulation 5 completed TREBA NEUSCHWANDER null, [facility] 08/30/2023 14:51:27 DTaP, unspecified formulation 6 completed TREBA NEUSCHWANDER null, [facility] 08/30/2023 14:51:27 DTaP, unspecified formulation 5 completed TREBA NEUSCHWANDER null, [facility] 08/30/2023 14:51:27 DTaP-Hep B-IPV 5 completed TREBA NEUSCHWANDER null, [facility] 08/30/2023 14:51:27 Hep A, unspecified formulation 7 completed TREBA NEUSCHWANDER null, [facility] L[facility]LB[facility]dan 08/30/2023 14:51:27 Hep A, unspecified formulation 6 completed HARVINDER SYDNIEGUADALUPE sallie, [facility], LAliaLCynthia. 08/30/2023 14:51:27 Past Encounters Encounter ID Performer Location Encounter Start Date Encounter Closed Date Diagnosis/Indication Diagnosis SNOMED-CT Code Diagnosis ICD10 Code Diagnosis Note [id number] Breanna Evangelista MD [facility] ([facility] [address] [place] [phone] 5 07/18/2024 16:47:38 07/29/2024 13:23:22 Normal in multigravida 1839697876 67519 Z34.83 Gestation period, 32 weeks 3219102 Z3A.32 [id number] Lorenzo Evans MD [facility] ([facility] [address] [place] [phone] 5 07/25/2024 15:21:59 07/27/2024 18:47:25 Cough 86642812 R05.9 Flu test was negative Viral uppe r respiratory tract infection 520310647 J06.9 Symptoms are consistent with viral upper respirator y infection. I discussed medication s that she can use that are safe in . Continue to push fluids. Continue to follow-up with PCP next week [id number] ALLISON PABON [facility] [address] [place] [phone] 5 07/30/2024 10:35:10 08/01/2024 14:30:30 [id number] LANDON MYLA [facility] [address] [place] [phone] 5 08/07/2024 13:57:28 08/07/2024 15:07:45 Normal in multigravida 6706923053 22007 Z34.83 Gestation period, 35 weeks 03271951 Z3A.35 Health Concerns Section Related Observation LastModified by Organization Detai ls LastModified Time None Recorded Concern Status LastModified by Organization Details LastModified Time None Recorded Payers Encounter Date Sequence Insurance Name Policy Number Policy Lee Covered Member ID Lee Member ID Guarantor Name 08/07/2024 1 [employer] (MEDICAID REPLACEMENT - HMO) [id number] Khalida Delgadillo [id number] Khalida Delgadillo Notes Date Note Type Note Provider Name and Address Organization Details Recorded Time 08/07/2024 text/html jr ob routineRep orted bypatient.Associated Symptoms:no abdominal pain; no contractions; normal movement; no bleeding; no vaginal/vulvar itching or irritation; no dysuria; no frequency; no urgency; no hematuria; no fever; no nausea; no emesis; no constipation; no diarrhea/loose stool; no visual changes; no decrease in urine volume; no breathlessness; no hyperreflexia;crampin g;vaginal discharge;edema(feet/ hands);headache;dizzi nessNotes:pelvic pain,vaginal pressure, intermittent inner thigh painDenies any tobacco, alcohol, or drug use. She is still having palpitations, occasional chest pain Breanna Evangelista MD [address] [place] [address], [phone], [facility] 08/07/2024 14:59:41 OBGyn Episode Ob Episode Information Episode Created Date Number of Fetuses Patient Bloodtype Patient rh Status Prepregnancy Weight lbs Domestic Partner Domestic Partner Phone Father Name Orchestra Leader Status 02/16/20 24 1 O Negative Herbert Stephens OPEN Fetus Data First Name Last Name Admitted to NICU Weight (g) Sex Living Outcome Pediatric Complications Fetus ID Race Codes Race Delivery Type [id number] Problems Problem Notes Baby large for dates. Rechec k ultrasound at 30 weeks.MacrosomiaDiscuss possible induction at 39 weeks. at 37 week appt. Problem Name Start Date End Date Resolution Snomed Code Not e Normal in multigravida 04/09/2024 [id number] Arina Calculation Initial Arina Date Initial Exam Date Initial Exam Provider Initial Ultrasound Date Last Menstrual Period Date Ultra Sound Weeks Gestation 09/09/2024 02/16/2024 12/04/2023 0 Eighteen To Twenty Week Arina Update Ultra Sound Date Fundal Height At Umbil Quickening Date Ultra Sound Latest Weeks Gestation Final Arina Confirmed By Final Arina Confirmed Date Final Arina Date Ultra Sound Latest Days Gestation 0 0 Pre-ronit Flowsheet Flowsheet Date 02/16/2024 Martines Score Blood Edema Fundus Height Fundus Units Glucose Ketones Leukocytes Nitrite Labor Signs Protein Cervic Dilation Cervic Effacement Cervic Station Type Weight in lbs Pre/Post Dialysis Refused Weight 219.8205364775 BP Diastolic BP Location Tested BP Systolic BP Type 74 120 Fetus Heart Rate Present Fetus Movement Comments OBI mild cramping and abdomi nal pain Flowsheet Date 02/22/2024 Martines Score Blood Edema Fundus Height Fundus Units Glucose Ketones Leukocytes Nitrite Labor Signs Protein Cervic Dilation Cervic Effacement Cervic Station Type Weight in lbs Pre/Post Dialysis Refused Weight 218.600933215854 BP Diastolic BP Location Tested BP Systolic BP Type 80 140 Fetus Heart Rate Present Fetus Movement Comments Flowsheet Date 03/12/2024 Martines Score Blood Edema Fundus Height Fundus Units Glucose Ketones Leukocytes Nitrite Labor Signs Protein Cervic Dilation Cervic Effacement Cervic Station none none neg Type Weight in lbs Pre/Post Dialysis Refused Weight 217.82343595334 BP Diastolic BP Location Tested BP Systolic BP Type 64 110 Fetus Heart Rate Present A 159 Present Fetus Movement Comments headache, occ edema to feet, palpitations Flowsheet Date 03/20/2024 Martines Score Blood Edema Fundus Height Fundus Units Glucose Ketones Leukocytes Nitrite Labor Signs Protein Cervic Dilation Cervic Effacement Cervic Station Type Weight in lbs Pre/Post Dialysis Refused BP Diastolic BP Location Tested BP Systolic BP Type Fetus Heart Rate Present Fetus Movement Comments Flowsheet Date 03/28/2024 Martines Score Blood Edema Fundus Height Fundus Units Glucose Ketones Leukocytes Nitrite Labor Signs Protein Cervic Dilation Cervic Effacement Cervic Station Type Weight in lbs Pre/Post Dialysis Refused BP Diastolic BP Location Tested BP Systolic BP Type Fetus Heart Rate Present Fetus Movement Comments Healthy Blue RA complete Flowsheet Date 04/10/2024 Martines Score Blood Edema Fundus Height Fundus Units Glucose Ketones Leukocytes Nitrite Labor Signs Protein Cervic Dilation Cervic Effacement Cervic Station none trace trace Type Weight in lbs Pre/Post Dialysis Refused 222.467874145647 BP Diastolic BP Location Tested BP Systolic BP Type 62 112 Fetus Heart Rate Present A 156 Present Fetus Movement A Yes Comments palpitations, shortness of b reath, intermit swelling in feet, Headaches, cramping, dysuria Flowsheet Date 04/23/2024 Martines Score Blood Edema Fundus Height Fundus Units Glucose Ketones Leukocytes Nitrite Labor Signs Protein Cervic Dilation Cervic Effacement Cervic Station Type Weight in lbs Pre/Post Dialysis Refused BP Diastolic BP Location Tested BP Systolic BP Type Fetus Heart Rate Present Fetus Movement Comments Flowsheet Date 04/29/2024 Martines Score Blood Edema Fundus Height Fundus Units Glucose Ketones Leukocytes Nitrite Labor Signs Protein Cervic Dilation Cervic Effacement Cervic Station Type Weight in lbs Pre/Post Dialysis Refused BP Diastolic BP Location Tested BP Systolic BP Type Fetus Heart Rate Present Fetus Movement Comments u/s on 04/23/24, EGA 21.3, ED D 08/31/24, visualized anatomy within normal limits, Estimated weight in the 97th percentile. Flowsheet Date 05/07/2024 Martines Score Blood Edema Fundus Height Fundus Units Glucose Ketones Leukocytes Nitrite Labor Signs Protein Cervic Dilation Cervic Effacement Cervic Station 24 cm none trace neg Type Weight in lbs Pre/Post Dialysis Refused 231.599437446858 BP Diastolic BP Location Tested BP Systolic BP Type 58 120 Fetus Heart Rate Present A 156 Present Fetus Movement A Yes Comments headaches, occasional palpit ations, heartburn Flowsheet Date 05/21/2024 Martines Score Blood Edema Fundus Height Fundus Units Glucose Ketones Leukocytes Nitrite Labor Signs Protein Cervic Dilation Cervic Effacement Cervic Station 25 cm none neg Type Weight in lbs Pre/Post Dialysis Refused 231.733791237498 BP Diastolic BP Location Tested BP Systolic BP Type 68 116 Fetus Heart Rate Present A 140 Present Fetus Movement A Yes Comments increased palpitations, and chest pain Flowsheet Date 06/04/2024 Martines Score Blood Edema Fundus Height Fundus Units Glucose Ketones Leukocytes Nitrite Labor Signs Protein Cervic Dilation Cervic Effacement Cervic Station Type Weight in lbs Pre/Post Dialysis Refused BP Diastolic BP Location Tested BP Systolic BP Type Fetus Heart Rate Present Fetus Movement Comments Flowsheet Date 06/04/2024 Martines Score Blood Edema Fundus Height Fundus Units Glucose Ketones Leukocytes Nitrite Labor Signs Protein Cervic Dilation Cervic Effacement Cervic Station 31 cm none trace Negative trace Type Weight in lbs Pre/Post Dialysis Refused Weight 233.004743869584 BP Diastolic BP Location Tested BP Systolic BP Type 72 128 sitting Fetus Heart Rate Present A 146 Present Fetus Movement A Yes Comments edema feet after work, heada thiago, glucose today, order sent to [facility] for Rhogam shot Flowsheet Date 06/18/2024 Martines Score Blood Edema Fundus Height Fundus Units Glucose Ketones Leukocytes Nitrite Labor Signs Protein Cervic Dilation Cervic Effacement Cervic Station 31 cm none trace Negative neg Type Weight in lbs Pre/Post Dialysis Refused Weight 235.614376831444 BP Diastolic BP Location Tested BP Systolic BP Type 60 110 sitting Fetus Heart Rate Present A 156 Present Fetus Movement A Yes Comments Rhogam received yesterday at [facility], edema in feet, headache, sob with palpitations Flowsheet Date 07/03/2024 Martines Score Blood Edema Fundus Height Fundus Units Glucose Ketones Leukocytes Nitrite Labor Signs Protein Cervic Dilation Cervic Effacement Cervic Station Type Weight in lbs Pre/Post Dialysis Refused BP Diastolic BP Location Tested BP Systolic BP Type Fetus Heart Rate Present Fetus Movement Comments u/s on 07/03/24, vertex, NESTOR 19.99, ARINA 08/25/24, EGA 32.3 Flowsheet Date 07/05/2024 Martines Score Blood Edema Fundus Height Fundus Units Glucose Ketones Leukocytes Nitrite Labor Signs Protein Cervic Dilation Cervic Effacement Cervic Station 34 cm none none Negative trace Type Weight in lbs Pre/Post Dialysis Refused Weight 240.269625527485 BP Diastolic BP Location Tested BP Systolic BP Type 70 120 sitting Fetus Heart Rate Present A 138 Present Fetus Movement A Yes Comments edema in hands/feet, headach es, low back, vaginal pressure, pelvic pain, left inner thigh pain Flowsheet Date 07/18/2024 Martines Score Blood Edema Fundus Height Fundus Units Glucose Ketones Leukocytes Nitrite Labor Signs Protein Cervic Dilation Cervic Effacement Cervic Station 35 cm none none Negative trace Type Weight in lbs Pre/Post Dialysis Refused Weight 243.143519361554 BP Diastolic BP Location Tested BP Systolic BP Type 76 124 sitting Fetus Heart Rate Present A 132 Present Fetus Movement A Yes Comments cramping, edema feet/hands, headache/dizziness, pelvic pain, vaginal pressure, left inner thigh pain Flowsheet Date 07/25/2024 Martines Score Blood Edema Fundus Height Fundus Units Glucose Ketones Leukocytes Nitrite Labor Signs Protein Cervic Dilation Cervic Effacement Cervic Station Type Weight in lbs Pre/Post Dialysis Refused Weight 243.548611394735 BP Diastolic BP Location Tested BP Systolic BP Type 84 134 Fetus Heart Rate Present Fetus Movement Comments Flowsheet Date 07/30/2024 Martines Score Blood Edema Fundus Height Fundus Units Glucose Ketones Leukocytes Nitrite Labor Signs Protein Cervic Dilation Cervic Effacement Cervic Station Type Weight in lbs Pre/Post Dialysis Refused BP Diastolic BP Location Tested BP Systolic BP Type Fetus Heart Rate Present Fetus Movement Comments Flowsheet Date 08/01/2024 Martines Score Blood Edema Fundus Height Fundus Units Glucose Ketones Leukocytes Nitrite Labor Signs Protein Cervic Dilation Cervic Effacement Cervic Station Type Weight in lbs Pre/Post Dialysis Refused BP Diastolic BP Location Tested BP Systolic BP Type Fetus Heart Rate Present Fetus Movement Comments u/s on 07/30/24, vertex ARINA , EGA 37.1, NESTOR / Flowsheet Date 08/07/2024 Martines Score Blood Edema Fundus Height Fundus Units Glucose Ketones Leukocytes Nitrite Labor Signs Protein Cervic Dilation Cervic Effacement Cervic Station 36 cm none neg 1cm 40% -3 Type Weight in lbs Pre/Post Dialysis Refused [id number] BP Diastolic BP Location Tested BP Systolic BP Type 66 110 Fetus Heart Rate Present A 136 Present Fetus Movement A Yes Comments vaginal pressure, discharge, cramping, swelling hands/feet,Group B Strep swab collected today Flowsheet Date 08/07/2024 Martines Score Blood Edema Fundus Height Fundus Units Glucose Ketones Leukocytes Nitrite Labor Signs Protein Cervic Dilation Cervic Effacement Cervic Station Type Weight in lbs Pre/Post Dialysis Refused BP Diastolic BP Location Tested BP Systolic BP Type Fetus Heart Rate Present Fetus Movement Comments Epidural consult order sent. Requested date 08/20/24 Flowsheet Date 08/12/2024 Martines Score Blood Edema Fundus Height Fundus Units Glucose Ketones Leukocytes Nitrite Labor Signs Protein Cervic Dilation Cervic Effacement Cervic Station Type Weight in lbs Pre/Post Dialysis Refused BP Diastolic BP Location Tested BP Systolic BP Type Fetus Heart Rate Present Fetus Movement Comments Group B negative, OB records sent Flowsheet Date 08/16/2024 Martines Score Blood Edema Fundus Height Fundus Units Glucose Ketones Leukocytes Nitrite Labor Signs Protein Cervic Dilation Cervic Effacement Cervic Station none none Negative Tomah Verduzco neg Type Weight in lbs Pre/Post Dialysis Refused Weight [id number] BP Diastolic BP Location Tested BP Systolic BP Type 64 130 sitting Fetus Heart Rate Present A 144 Present Fetus Movement A Yes Comments cramping, edema feet/hands, pelvic/back pain, increased vaginal pressure Flowsheet Date 08/20/2024 Martines Score Blood Edema Fundus Height Fundus Units Glucose Ketones Leukocytes Nitrite Labor Signs Protein Cervic Dilation Cervic Effacement Cervic Station 37 cm none none Negative Memo Verduzco neg 2cm 40% -4 Type Weight in lbs Pre/Post Dialysis Refused Weight 245.188539649529 BP Diastolic BP Location Tested BP Systolic BP Type 64 118 sitting Fetus Heart Rate Present A 138 Present Fetus Movement A Yes Comments cramping, edema-feet/hands, pelvic pain, vaginal pressure, low back pain, inner thigh pain, headache Flowsheet Date 08/27/2024 Martines Score Blood Edema Fundus Height Fundus Units Glucose Ketones Leukocytes Nitrite Labor Signs Protein Cervic Dilation Cervic Effacement Cervic Station none none Negative neg Type Weight in lbs Pre/Post Dialysis Refused Weight 247.047004687518 BP Diastolic BP Location Tested BP Systolic BP Type 72 120 sitting Fetus Heart Rate Present A 162 Fetus Movement A Yes Comments cramping, abd pain, headache , edema-feet/hands,dizziness,vaginal press,pelvic pain,back pain, Menstrual History Last Menstrual Date Menses Monthly On Bcp Conception Prior Menses Frequency Hcg Plus Date Menarche Onset Age 0512/04/2023 true 12/04/2023 Genetic Screening And Infection History Question Response Note Patient's Age Will Be 35 Years Or Older At Estim ated Date of Delivery false Thalassemia (Norwegian, Burkinan, Mediterranean, Or Background): MCV < 80 false Neural Tube Defect (Meningomyelocele, Spina Bifi da, Or Anencephaly) false Congenital Heart Defect false Down Syndrome false Pancho-Sachs (eg, Yazidism, Cajun, Frisian-[place]) f alse Kathy Disease false Sickle Cell Disease Or Trait () false Hemophilia Or Other Blood Disorders false Muscular Dystrophy false Cystic Fibrosis false Chapo's Chorea false Intellectual Disability/Autism false If Yes, Was Person Tested For Fragile X? false Other Inherited Genetic Or Chromosomal Disorder false Maternal Metabolic Disorder (eg, Type 1 Diabetes , PKU) false Patient Or Baby's Father Had A Child With Defects Not Listed Above false Recurrent Loss, Or A Stillbirth false Medications (including Suppl ements, Vitamins, Herbs, OTC Drugs), Illicit/Recreational Drugs, Alcohol false If Yes, Agent(s) And Strength/Dosage false Any Other Genetic History false Live With Someone With TB Or Exposed To TB false Patient Or Partner Has History Of Genital Herpes false Rash Or Viral Illness Since Last Menstrual Perio d false History Of STD, Gonorrhea, Chlamydia, HPV, Syphi lis false Other Infection History false History of HIV false History of Hepatitis false Prior GBS-infected child false Hemoglobinopathy Or Carrier false Other Structural Defect false Recent Travel History Outside of Country false Mental Retardation/Autism false Delivery Information Delivery Date Delivery Type Labor Anesthesia Weeks Gestation Incision Type Labor Labor Length Hrs Delivered By Post Complications Tubal Sterilization Discharge Date Comments Discharge Information Feeding Method Contraceptive Method Maternal HG B and HCT Levels
--- OUTSIDE RECORDS SUMMARY | 2024-09-03 19:33 | XMS_ITS | Clinical Summary ---
Author Organization [facility] Address [address] [address] Phone Care Team Providers Care On Awake Counselor Name Role Phone Palak Sanchez EQUIPMENT [employer] MACHINERY CLE[employer]ER Primary Care Provider [phone] Allergies No known active allergies Social History Tobacco Use Types Packs/Day Years Used Date Smoking Tobacco: Never Assessed Adolescent Education Answer Date Record ed Getting School Help Needed Not on file 02/24 Comments Unknown Sex and Gender Information Value [...] on patient's age to complete this topic Insurance [employer] BLUE ACCESS/TRUE BLUE PPO BS BLUE ACCESS/TRUE BLUE PPO Care Teams On Awake Counselor Relationship Specialty Start Date End Date Palak Sanchez NP [address] [place] [address] PCP - General NURSE PRACTITIONER 03/01/21
--- OUTSIDE RECORDS SUMMARY | 2024-09-03 19:33 | XMS_ITS | Data Portability ---
Author Organization [facility] Address [address] [address] Care Team Providers Care Counter Weigher Name Role Phone BREANNA EVANGELISTA Primary Care Provider Unavaila ble Assessment No assessment recorded. Plan of Treatment Reminders Order Date Submit Date Provider Last Modified By Organization Details Last Modified Time Details Appointments RETURN OB 2024 03:00P M Breanna Evangelista MD Not available Not available Not available RETURN OB 2024 03:50P M Breanna Evangelisat MD Not available Not available Not available Lab streptoco ccus group B, culture, unspecifi ed specimen 2024 025 [facility], [address] [place] [address], [facility] [address] [place], [address], 08/11/2024 07:09:12 Referral None recorded. Procedures None recorded. Surgeries None recorded. Imaging None recorded. Medication Orders None recorded. Patient TargetsNo targets recorded. Patient InstructionsNo instructions recorded. Reason for Referral None Reported. Results Created Date Observation Date Name Description Value Unit Range Abnormal Flag Note LastModifiedBy Organization Detail LastModifiedTime 07/25/1907/25/2024 rapid flu (A+B) , PCR Influenza A negati ve Not Available [facility] ([facility]) [address] [place] [address], [phone], 07/25/2024 15:25:58 07/25/19 25 07/25/2024 rapid flu (A+B) , PCR Influenza B negati ve Not Available [facility] ([facility]) [address] [place], [address], 07/25/2024 15:25:58 08/08/19 25 08/11/2024 STREP TOCOC CUS, GROUP B CULTU RE streptococcu s, group B culture SEE NOTE STREP TOCOC CUS, GROUP B CULTU RE Micro Numbe r: [id number] Test Statu s: Final Speci men Sourc e: Vagin al/an orect al Speci men Quali ty: Adequ ate Resul t: No group B Strep tococ cus isola shelley Note per CDC guide lines optim al recov shahrzad is achie alvin by swabb ing both the lower vagin a and rectu m (thro ugh the anal sphin cter) . Not Available [facility] [address] [place], [address], 08/11/2024 07:09:12 Result Notes None recorded. Problems Name Problem SNOMED Code Status Onset Date Resolution Date Notes Provider Name and Address Organization Details Recorded Time Palpitation s 38983148 Active 2023 Lorenzo Evans MD [address] [place] [address], [phone], [facility] 4 16:14:03 Normal in multigravid a 8700501775632 06 Active 2023 LANDON rizo [facility] 4 18:33:04 Normal in multigravid a 7570760863532 06 Active 2023 LANDON rizo [facility] 4 18:33:04 Cough 42252650 Active 2024 Lorenzo Evans MD [address] [place] [address], [phone], [facility] 5 15:49:05 Viral upper respiratory tract infection 277325124 Active 2024 Lorenzo Evans MD [address] [place], [address], [facility] 5 15:49:12 Problem Notes None recorded. Medical Equipment None Reported. Allergies Allergen ID Allergen Name Allergen Category Reaction Reaction Severity Criticality Documentation Date Start Date Code Code System Note Provider Name and Address Organization Details Recorded Time 10513 Augmentin medicatio n Not available Not available Not available 08/30/2023 74762 2 RxNorm TREBA THIERNOSCHWASara Mtz, [facility] 4 14:51:46 50846 Norflex medicatio n Not available Not available Not available 08/30/2023 75285 4 RxNorm TREBA NEUSCHWASara Mtz, [facility] 4 14:52:14 99812 tramadol medicatio n Not available Not available Not available 02/16/2024 24433 RxNorm TREBA NEUSCHWAN Mtz, [facility] 4 14:26:37 Medications Name Sig Start Date Stop Date Status Note LastModified by Organization Details LastModified Time vitd3 2000iusft dzyuw430 take 1 capsule BY MOUTH EVERY DAY [...] 5 167.64 cm 38.8 kg/m2 98.24 % 229933. 569277 g 99 % 99 % 97 /min 18 /min 98.7 [degF] 110 mm[Hg] 66 mm[Hg] LANDON LANZA [facility], [facility] 5 14:30:23 Date Recorded Body height Body mass index (BMI) Body mass index (BMI) Percentile per age and sex Body weight Oxygen saturation Oxygen saturation in Arterial blood by Pulse oximetry Heart rate Respiratory rate Body temperature Systolic blood pressure Diastolic blood pressure Provider Name and Address Organization Details Last Updated DateTime 5 167.64 cm 39.4 kg/m2 98.43 % 396297. 64 g 99 % 99 % 110 /min 20 /min 99 [degF] 130 mm[Hg] 64 mm[Hg] HARVINDER LEMOS [facility] 5 16:19:38 Date Recorded Body height Body mass index (BMI) Percentile per age and sex Body mass index (BMI) Body weight Oxygen saturation Oxygen saturation in Arterial blood by Pulse oximetry Heart rate Respiratory rate Body temperature Systolic blood pressure Diastolic blood pressure Provider Name and Address Organization Details Last Updated DateTime 5 167.64 cm 98.46 % 39.5 kg/m2 567813. 13 g 98 % 98 % 115 /min 18 /min 98.7 [degF] 118 mm[Hg] 64 mm[Hg] HARVINDER LEMOS [facility] 5 17:18:20 Date Recorded Body height Body mass index (BMI) Body mass index (BMI) Percentile per age and sex Body weight Oxygen saturation Oxygen saturation in Arterial blood by Pulse oximetry Heart rate Respiratory rate Body temperature Systolic blood pressure Diastolic blood pressure Provider Name and Address Organization Details Last Updated DateTime 5 167.64 cm 39.9 kg/m2 98.55 % 555407. 12 g 99 % 99 % 116 /min 18 /min 98.8 [degF] 120 mm[Hg] 72 mm[Hg] HARVINDER LEMOS [facility] 5 17:04:46 Social History Question Answer Notes LastModified by Organizat ion Details LastModified Time Tobacco Smoking Status Never Smoker HARVINDER rizo [facility] 08/30/2023 14:55:10 What Is Your Level Of [...] unspecified formulation 6 completed TREBA NEUSCHWANDER null, [facility] 08/30/2023 14:51:27 Hib, unspecified formulation 5 completed TREBA NEUSCHWANDER null, [facility] 08/30/2023 14:51:27 Hib, unspecified formulation 5 completed TREBA NEUSCHWANDER null, [facility] 08/30/2023 14:51:27 meningococcal B, OMV 2 completed TREBA NEUSCHWANDER null, [facility] 08/30/2023 14:51:27 meningococcal B, OMV 2 completed TREBA NEUSCHWANDER null, [facility] 08/30/2023 14:51:27 meningococcal ACWY, unspecified formulation 7 completed TREBA NEUSCHWANDER null, [facility] 08/30/2023 14:51:27 MMR 9 completed TREBA NEUSCHWANDER null, [facility] 08/30/2023 14:51:27 MMR 6 completed TREBA NEUSCHWANDER null, [facility] 08/30/2023 14:51:27 meningococcal conjugate quadrivalent, MenACWY-TT (MCV4) 2 completed TREBA NEUGIOVANNIWANDER null, [facility] 08/30/2023 14:51:27 pneumococcal conjugate PCV 7 5 completed TREBA NEUSCHWANDER null, [facility] 08/30/2023 14:51:27 Tdap 7 completed TREBA NEUSCHWANDER null, [facility] 08/30/2023 14:51:27 varicella 6 completed TREBA NEUSCHWANDER null, [facility] 08/30/2023 14:51:27 varicella 9 completed TREBA NEUSCHWANDER null, [facility] 08/30/2023 14:51:27 Hep B, unspecified formulation 5 [facility] 14:51:27 Hep B, unspecified formulation 5 completed TREBA NEUSCHWANDER null, [facility] 08/30/2023 14:51:27 Hep B, unspecified formulation 5 completed TREBA NEUSCHWANDER null, [facility] 08/30/2023 14:51:27 HPV, unspecified formulation 8 completed TREBA NEUSCHWANDER null, [facility] 08/30/2023 14:51:27 HPV, unspecified formulation 7 completed TREBA NEUSCHWANDER null, [facility] 08/30/2023 14:51:27 pneumococcal, unspecified formulation 9 completed TREBA NEUSCHWANDER null, [facility] 08/30/2023 14:51:27 pneumococcal, unspecified formulation 6 completed TREBA NEUSCHWANDER null, [facility] 08/30/2023 14:51:27 pneumococcal, unspecified formulation 5 completed TREBA NEUSCHWANDER null, [facility] 08/30/2023 14:51:27 polio, unspecified formulation 9 completed TREBA NEUSCHWANDER null, [facility] 08/30/2023 14:51:27 polio, unspecified formulation 5 completed TREBA NEUSCHWANDER null, [facility] 08/30/2023 14:51:27 polio, unspecified formulation 5 completed TREBA NEUSCHWANDER null, [facility] 08/30/2023 14:51:27 Hib (PRP-T) 5 completed TREBA NEUSCHWANDER null, [facility] 08/30/2023 14:51:27 DTaP, unspecified formulation 9 completed TREBA NEUSCHWANDER null, [facility] 08/30/2023 14:51:27 DTaP, unspecified formulation 5 completed TREBA NEUSCHWANDER null, [facility] 08/30/2023 14:51:27 DTaP, unspecified formulation 6 completed TREBA NEUSCHWANDER null, [facility] 08/30/2023 14:51:27 DTaP, unspecified formulation 5 completed TREBA NEUSCHWANDER null, [facility] 08/30/2023 14:51:27 DTaP-Hep B-IPV 5 completed TREBA NEUSCHWANDER null, [facility] 08/30/2023 14:51:27 Hep A, unspecified formulation 7 completed TREBA NEUSCHWANDER null, [facility] 08/30/2023 14:51:27 Hep A, unspecified formulation 6 completed TREBA NEUSCHWANDER null, [facility] 08/30/2023 14:51:27 Past Encounters Encounter ID Performer Location Encounter Start Date Encounter Closed Date Diagnosis/Indication Diagnosis SNOMED-CT Code Diagnosis ICD10 Code Diagnosis Note [id number] Breanna Evangelista MD [facility] ([facility]) [address] [place] [phone] 08/30/2023 14:12:49 09/05/2023 12:40:56 Threatened miscarriage in first trimester 46153914 O20.0 [id number] Breanna Evangelista MD [facility] ([facility]) [address] [place] [phone] 5 02/16/2024 14:18:32 02/16/2024 16:03:45 Normal in multigravida 9351239502 14601 Z34.81 Anxiety disorder 4961244 06 F41.9 [id number] Lorenzo Evans MD [facility] ([facility]) [address] [place] [id number] 5 02/22/2024 15:55:47 02/22/2024 17:50:48 Palpitations 92352377 R00.2 EKG was obtained and showed a normal sinus rhythm with no abnormalit ies. Will obtain lab work including a TSH. Patient was reassured that this is most likely PVCs and unremarkab le will know more when we have the results of the director of cardiac cath lab. Normal pre gnancy in multigravida 9920895742 70745 Z34.81 Will proceed with routine lab work needed in prior to appointmen t with Dr. Evangelista. [id number] Breanna Evangelista MD [facility] ([facility]) [address] [place] [phone] 5 03/12/2024 09:58:46 03/12/2024 10:44:55 84654402 Z33.1 Palpitations 48593735 R0 0.2 Headache 93091914 R51.9 [id number] [facility] ([facility]) [address] [place] [id number] 5 03/20/2024 11:59:44 03/21/2024 12:08:41 [id number] Breanna Evangelista MD [facility] ([facility]) [address] [place] [id number] 5 04/10/2024 14:54:15 04/10/2024 17:02:26 Normal in multigravida 6946268876 85911 Z34.81 Gestation period, 18 weeks 76089921 Z3A.18 Dysuria 27261842 R30.0 Palpitations 17331623 R0 0.2 Headache 62041761 R51.9 Anxiety disorder 1400855 06 F41.9 [id number] [facility] ([facility]) [address] [place] [id number] 5 04/23/2024 14:42:03 04/26/2024 10:54:37 Normal in multigravida 3622573974 55449 Z34.81 [id number] Breanna Evangelista MD [facility] ([facility]) [address] [place] [id number] 5 05/07/2024 16:52:45 05/07/2024 17:42:19 Normal in multigravida 0340677911 28634 Z34.82 Gestation period, 22 weeks 25246922 Z3A.22 Large for gestation age fetus 727397174 O36.60X1 Heartburn 33357759 R12 [id number] Breanna Evangelista MD [facility] ([facility]) [address] [place] [address]14[address] 5 05/21/2024 16:28:10 05/21/2024 17:11:04 Palpitations 50238779 R00.2 Normal pre gnancy in multigravida 2539872802 56168 Z34.82 Gestation period, 24 weeks 803641516 Z3A.24 Cardiac arrhythmia 51691 7007 I49.9 [id number] Breanna Evangelista MD [facility] ([facility]) [address] [place] [address] 5 06/04/2024 16:41:22 06/05/2024 08:12:27 Normal in multigravida 0657496010 60552 Z34.82 Gestation period, 26 weeks 02789005 Z3A.26 [id number] ANGELI PERKINS [facility] ([facility]) [address] [place] [address]12[address] 5 06/04/2024 15:55:14 06/05/2024 12:32:56 Normal in multigravida 9658991204 85326 Z34.82 [id number] Breanna Evangelista MD [facility] ([facility]) [address] [place] [id number] 5 06/18/2024 16:44:01 06/28/2024 06:18:03 Normal in multigravida 4027623637 94988 Z34.82 Gestation period, 28 weeks 36540793 Z3A.28 [id number] LANDON MYLA [facility] ([facility]) [address] [place] [address]586 5 07/03/2024 13:56:34 07/04/2024 14:40:45 [id number] Breanna Evangelista MD [facility] ([facility]) [address] [place] [id number] 5 07/05/2024 15:57:11 07/05/2024 17:13:41 Normal in multigravida 8055526690 05687 Z34.83 Gestation period, 30 weeks 86984003 Z3A.30 Uterine si ze for dates discrepancy 097031377 O26.889 [id number] Breanna Evangelista MD [facility] ([facility]) [address] [place] [id number] 5 07/18/2024 16:47:38 07/29/2024 13:23:22 Normal in multigravida 8844561821 64357 Z34.83 Gestation period, 32 weeks 6222851 Z3A.32 [id number] Lorenzo Evans MD [facility] ([facility]) [address] [place] [id number] 5 07/25/2024 15:21:59 07/27/2024 18:47:25 Cough 24201023 R05.9 Flu test was negative Viral uppe r respiratory tract infection 301754745 J06.9 Symptoms are consistent with viral upper respirator y infection. I discussed medication s that she can use that are safe in . Continue to push fluids. Continue to follow-up with PCP next week [id number] ALLISONVERN PABON [facility] ([facility]) [address] [place] [phone] 5 07/30/2024 10:35:10 08/01/2024 14:30:30 [id number] LANDON LANZA [facility] ([facility]) [address] [place] [address]140[address]990 5 08/07/2024 13:57:28 08/07/2024 15:07:45 Normal in multigravida 8014164980 67432 Z34.83 Gestation period, 35 weeks 62441153 Z3A.35 [id number] Simone Galindo [facility] ([facility]) [address] [place] [id number] 5 08/16/2024 16:03:55 08/16/2024 17:18:24 Normal in multigravida 0459596693 99619 Z34.83 Gestation period, 36 weeks 82055673 Z3A.36 [id number] Breanna Evangelista MD [facility] ([facility]) [address] [place] [address] 5 08/20/2024 16:40:32 08/20/2024 18:36:47 Normal in multigravida 7016024032 36006 Z34.83 Gestation period, 37 weeks 22683666 Z3A.37 [id number] Breanna Evangelista MD [facility] ([facility]) [address] [place] [address] 08/27/2024 16:55:30 08/27/2024 17:26:35 Normal in multigravida 0247458143 76219 Z34.83 Gestation period, 38 weeks 91596599 Z3A.38 Health Concerns Section Related Observation LastModified by Organization Detai ls LastModified Time None Recorded Concern Status LastModified by Organization Details LastModified Time None Recorded Advance Directives Directive None Recorded Payers Encounter Date Sequence Insurance Name Policy Number Policy Lee Covered Member ID Lee Member ID Guarantor Name 07/30/2024 1 [employer] [place] [id number] Khalida L Elie [id number] Khalida Elie 08/07/2024 1 [employer] [place] [place] [id number] Khalida L Elie [id number] Khalida Elie 08/20/2024 1 [employer] [place] [place] [id number] Khalida L Elie [id number] Khalida Elie 08/27/2024 1 [employer] [place] [place] [id number] Khalida L Elie [id number] Khalida Elie Notes Date Note Type Note Provider Name and Address Organization Details Recorded Time 08/07/2024 text/html ob routineRep orted bypatient.Associated Symptoms:no abdominal pain; [...] palpitations, occasional chest pain Breanna Evangelista MD [address] [place] [address], [phone], [facility] 08/07/2024 14:59:41 08/20/2024 text/html ob routineRep orted bypatient.Associated Symptoms:no abdominal pain; normal movement; no bleeding; no vaginal discharge; no vaginal/vulvar itching or irritation; no dysuria; no frequency; no urgency; no hematuria; no fever; no nausea; no emesis; no constipation; no diarrhea/loose stool; no visual changes; no dizziness; no decrease in urine volume; no breathlessness; no hyperreflexia;crampin g;contractions(irr);e shirley(feet/hands);head acheNotes:pelvic pain,vaginal pressure, intermittent inner thigh painDenies any tobacco, alcohol, or drug use. She is still having palpitations, chest pain has decreased Breanna Evangelista MD [address] [place] [address], [phone], [facility] 08/27/2024 19:18:50 08/27/2024 text/html ob routineRep orted bypatient.Associated Symptoms:normal movement; no bleeding; no vaginal discharge; no vaginal/vulvar itching or irritation; no dysuria; no frequency; no urgency; no hematuria; no fever; no nausea; no emesis; no constipation; no diarrhea/loose stool; no visual changes; no dizziness; no decrease in urine volume; no breathlessness; no hyperreflexia;abdomin al pain;cramping;contrac tions(irr);edema(feet /hands);headacheNotes :pelvic pain,vaginal pressure, intermittent inner thigh painDenies any tobacco, alcohol, or drug use. She is still having palpitations, chest pain has decreased Breanna Evangelista MD [address] [place] [address], [phone], [facility] 08/27/2024 17:26:27 OBGyn Episode Ob Episode Information Episode Created Date Number of Fetuses Patient Bloodtype Patient rh Status Prepregnancy Weight lbs Domestic Partner Domestic Partner Phone Father Name Dolly Pusher Status 02/16/20 24 1 O Negative Herbert [...] Code Not e Normal in multigravida 04/09/2024 [id number] Arina Calculation Initial Arina Date Initial Exam [...] Weight in lbs Pre/Post Dialysis Refused Weight 219.6061166579 BP Diastolic BP Location Tested BP Systolic BP Type 74 120 Fetus Heart Rate Present Fetus Movement Comments OBI mild cramping and abdomi nal pain Flowsheet Date 02/22/2024 Martines Score Blood Edema Fundus Height Fundus Units Glucose Ketones Leukocytes Nitrite Labor Signs Protein Cervic Dilation Cervic Effacement Cervic Station Type Weight in lbs Pre/Post Dialysis Refused Weight 218.681202283001 BP Diastolic BP Location Tested BP Systolic BP Type 80 140 Fetus Heart Rate Present Fetus Movement Comments Flowsheet Date 03/12/2024 Martines Score Blood Edema Fundus Height Fundus Units Glucose Ketones Leukocytes Nitrite Labor Signs Protein Cervic Dilation Cervic Effacement Cervic Station none none neg Type Weight in lbs Pre/Post Dialysis Refused Weight 217.62967916763 BP Diastolic BP Location Tested BP Systolic [...] Type Weight in lbs Pre/Post Dialysis Refused 222.109623339329 BP Diastolic BP Location Tested BP Systolic [...] Type Weight in lbs Pre/Post Dialysis Refused 231.651295119075 BP Diastolic BP Location Tested BP Systolic BP Type 58 120 Fetus Heart Rate Present A 156 Present Fetus Movement A Yes Comments headaches, occasional palpit ations, heartburn Flowsheet Date 05/21/2024 Martines Score Blood Edema Fundus Height Fundus Units Glucose Ketones Leukocytes Nitrite Labor Signs Protein Cervic Dilation Cervic Effacement Cervic Station 25 cm none neg Type Weight in lbs Pre/Post Dialysis Refused 231.055044007519 BP Diastolic BP Location Tested BP Systolic [...] Weight in lbs Pre/Post Dialysis Refused Weight 233.874594673442 BP Diastolic BP Location Tested BP Systolic BP Type 72 128 sitting Fetus Heart Rate Present A 146 Present Fetus Movement A Yes Comments edema feet after work, heada thiago, glucose today, order sent to [facility] for Rhogam shot Flowsheet Date 06/18/2024 Martines Score Blood Edema Fundus Height Fundus Units Glucose Ketones Leukocytes Nitrite Labor Signs Protein Cervic Dilation Cervic Effacement Cervic Station 31 cm none trace Negative neg Type Weight in lbs Pre/Post Dialysis Refused Weight 235.159479686830 BP Diastolic BP Location Tested BP Systolic [...] Weight in lbs Pre/Post Dialysis Refused Weight 240.170226858859 BP Diastolic BP Location Tested BP Systolic [...] Weight in lbs Pre/Post Dialysis Refused Weight 243.906081110054 BP Diastolic BP Location Tested BP Systolic [...] Weight in lbs Pre/Post Dialysis Refused Weight 243.252153872816 BP Diastolic BP Location Tested BP Systolic [...] 07/30/24, vertex ARINA , EGA 37.1, NESTOR 17/ Flowsheet Date 08/07/2024 Martines Score Blood Edema Fundus Height Fundus Units Glucose Ketones Leukocytes Nitrite Labor Signs Protein Cervic Dilation Cervic Effacement Cervic Station 36 cm none neg 1cm 40% -3 Type Weight in lbs Pre/Post Dialysis Refused 240.061008263219 BP Diastolic BP Location Tested BP Systolic [...] Cervic Effacement Cervic Station none none Negative Ciales Verduzco neg Type Weight in lbs Pre/Post Dialysis Refused Weight 244.46037588936 BP Diastolic BP Location Tested BP Systolic BP Type 64 130 sitting Fetus Heart Rate Present A 144 Present Fetus Movement A Yes Comments cramping, edema feet/hands, pelvic/back pain, increased vaginal pressure Flowsheet Date 08/20/2024 Martines Score Blood Edema Fundus Height Fundus Units Glucose Ketones Leukocytes Nitrite Labor Signs Protein Cervic Dilation Cervic Effacement Cervic Station 37 cm none none Negative Ciales Verduzco neg 2cm 40% -4 Type Weight in lbs Pre/Post Dialysis Refused Weight 245.935484706718 BP Diastolic BP Location Tested BP Systolic [...] Weight in lbs Pre/Post Dialysis Refused Weight 247.366625446888 BP Diastolic BP Location Tested BP Systolic [...] Estim ated Date of Delivery false Thalassemia (Martiniquais, Faroese, Mediterranean, Or Background): MCV < 80 false Neural Tube Defect (Meningomyelocele, Spina Bifi da, Or Anencephaly) false Congenital Heart Defect false Down Syndrome false Pancho-Sachs (eg, Druze, Cajun, Tuvaluan-Ghanaian) f alse Kathy Disease false Sickle Cell [...]
--- OUTSIDE RECORDS SUMMARY | 2024-09-03 19:33 | XMS_ITS | Continuity of Care Document ---
Author Organization [facility] Ramón Arnold [facility] Sergio Galan, [facility] ([facility]) Address [address] [place] [address] Care Team Providers Care Legal Internship Name Role Phone BREANNA EVANGELISTA Primary Care Provider Unavaila ble Assessment No assessment recorded. Plan of Treatment Reminders Order Date Submit Date Provider Last Modified By Organization Details Last Modified Time Details Appointments RETURN OB 2024 03:00P M Breanna Evangelista MD Not available Not available Not available RETURN OB 2024 03:50P M Breanna Evangelista MD Not available Not available Not available Lab None recorded . Referral None recorded . Procedures None recorded . Surgeries None recorded . Imaging None recorded . Medication Orders None recorded . Patient TargetsNo targets recorded. Patient InstructionsNo instructions recorded. Reason for Referral None Reported. Results Created Date Observation Date Name Description Value Unit Range Abnormal Flag Note LastModifiedBy Organization Detail LastModifiedTime 04/25/20 24 04/23/2024 US, obste tric, 2nd trime ster No observ ation record ed. [facility] [address] [place], [address], 04/29/2024 17:11:42 06/05/20 24 elect rocar diogr am No observ ation record ed. [email or web address] Not Available 2023 11:36:57 Result Notes None recorded. Problems Name Problem SNOMED Code Status Onset Date Resolution Date Notes Provider Name and Address Organization Details Recorded Time Palpitation s 68208258 Active 2023 Lorenzo Evans MD [address] [place], [address], [facility] 4 16:14:03 Normal in multigravid a 3429510367793 06 Active 2023 LANDON LANZA [facility], [facility] 4 18:33:04 Normal in multigravid a 9882065583790 06 Active 2023 LANDON rizo, [facility] 4 18:33:04 Cough 81931552 Active 2024 Lorenzo Evans MD [address] [place] [address], [phone], [facility] 5 15:49:05 Viral upper respiratory tract infection 635026920 Active 2024 Lorenzo Evans MD [address] [place] [address], [phone], [facility] 5 15:49:12 Problem Notes None recorded. Medical Equipment None Reported. Allergies Allergen ID Allergen Name Allergen Category Reaction Reaction Severity Criticality Documentation Date Start Date Code Code System Note Provider Name and Address Organization Details Recorded Time 35443 Augmentin medicatio n Not available Not available Not available 08/30/2023 79220 2 RxNorm TREBA NEUSCHWAN CHINMAY sallie [facility] 4 14:51:46 52588 Norflex medicatio n Not available Not available Not available 08/30/2023 80031 4 RxNorm TREBA NEUSCHWAN CHINMAY [facility], [facility] 4 14:52:14 59684 tramadol medicatio n Not available Not available Not available 02/16/2024 38472 RxNorm TREBA NEUSCHWAN CHINMAY [facility], [facility] 4 14:26:37 Medications Name Sig Start Date Stop Date Status Note LastModified by Organization Details LastModified Time vitd3 2000iusft take 1 capsule BY MOUTH EVERY DAY [...] 5 167.64 cm 98.46 % 39.5 kg/m2 375826. 13 g 98 % 98 % 115 /min 18 /min 98.7 [degF] 118 mm[Hg] 64 mm[Hg] HARVINDER LEMOS [facility] 5 17:18:20 Date Recorded Body height Body mass index (BMI) Body mass index (BMI) Percentile per age and sex Body weight Oxygen saturation Oxygen saturation in Arterial blood by Pulse oximetry Heart rate Respiratory rate Body temperature Systolic blood pressure Diastolic blood pressure Provider Name and Address Organization Details Last Updated DateTime 5 167.64 cm 39.9 kg/m2 98.55 % 595552. 12 g 99 % 99 % 116 /min 18 /min 98.8 [degF] 120 mm[Hg] 72 mm[Hg] HARVINDER LEMOS [facility] 5 17:04:46 Social History Question Answer Notes LastModified by Organizat ion Details LastModified Time Tobacco Smoking Status Never Smoker HARVINDER rizo [facility] 08/30/2023 14:55:10 What Is Your Level [...] unspecified formulation 6 completed TREBA NEUSCHWANDER null, [facility] 08/30/2023 14:51:27 Hib, unspecified formulation 5 completed [facility] 08/30/2023 14:51:27 Hib, unspecified formulation 5 completed TREBA NEUSCHWANDER null, [facility] 08/30/2023 14:51:27 meningococcal B, OMV 2 completed TREBA NEUSCHWANDER null, [facility] 08/30/2023 14:51:27 meningococcal B, OMV 2 completed TREBA NEUSCHWANDER null, [facility] 08/30/2023 14:51:27 meningococcal ACWY, unspecified formulation 7 completed TREBA NEUSCHWANDER null, [facility] 08/30/2023 14:51:27 MMR 9 completed TREBA NEUSCHWANDER null, [facility] 08/30/2023 14:51:27 MMR 6 completed TREBA NEUSCHWANDER null, [facility] 08/30/2023 14:51:27 meningococcal conjugate quadrivalent, MenACWY-TT (MCV4) 2 completed TREBA SYDNIEWANDER null, [facility] 08/30/2023 14:51:27 pneumococcal conjugate PCV 7 5 completed TREBA NEUGIOVANNIWANDER [facility], [facility] 08/30/2023 14:51:27 Tdap 7 completed TREBA NEUGIOVANNIWANDER [facility], [facility] 08/30/2023 14:51:27 varicella 6 completed TREBA NEUGIOVANNIWANDER [facility], [facility] 08/30/2023 14:51:27 varicella 9 completed TREBA NEUGIOVANNIWANDER [facility] 08/30/2023 14:51:27 Hep B, unspecified formulation 5 completed [facility] 08/30/2023 14:51:27 Hep B, unspecified formulation 5 completed [facility]WAND[facility] 08/30/2023 14:51:27 Hep B, unspecified formulation 5 completed TREBA NEUGIOVANNIWANDER null, [facility] 08/30/2023 14:51:27 HPV, unspecified formulation 8 completed TREBA NEUSCHWANDER null, [facility] 08/30/2023 14:51:27 HPV, unspecified formulation 7 completed TREBA NEUSCHWANDER [facility] 08/30/2023 14:51:27 pneumococcal, unspecified formulation 9 completed TREBA NEUSCHWANDER null, [facility] 08/30/2023 14:51:27 pneumococcal, unspecified formulation 6 completed TREBA NEUSCHWANDER null, [facility] 08/30/2023 14:51:27 pneumococcal, unspecified formulation 5 completed TREBA NEUSCHWANDER null, [facility] 08/30/2023 14:51:27 polio, unspecified formulation 9 completed TREBA NEUSCHWANDER null, [facility] 08/30/2023 14:51:27 polio, unspecified formulation 5 completed TREBA NEUSCHWANDER null, [facility] 08/30/2023 14:51:27 polio, unspecified formulation 5 completed TREBA NEUSCHWANDER null, [facility] 08/30/2023 14:51:27 Hib (PRP-T) 5 completed TREBA NEUSCHWANDER null, [facility] 08/30/2023 14:51:27 DTaP, unspecified formulation 9 completed TREBA NEUSCHWANDER null, [facility] 08/30/2023 14:51:27 DTaP, unspecified formulation 5 completed TREBA NEUSCHWANDER null, [facility] 08/30/2023 14:51:27 DTaP, unspecified formulation 6 completed TREBA NEUSCHWANDER null, [facility] 08/30/2023 14:51:27 DTaP, unspecified formulation 5 completed TREBA NEUSCHWANDER null, [facility] 08/30/2023 14:51:27 DTaP-Hep B-IPV 5 completed TREBA NEUSCHWANDER null, [facility] 08/30/2023 14:51:27 Hep A, unspecified formulation 7 completed TREBA NEUSCHWANDER null, [facility] 08/30/2023 14:51:27 Hep A, unspecified formulation 6 completed TREBA NEUSCHWANDER null, [facility] 08/30/2023 14:51:27 Past Encounters Encounter ID Performer Location Encounter Start Date Encounter Closed Date Diagnosis/Indication Diagnosis SNOMED-CT Code Diagnosis ICD10 Code Diagnosis Note [id number] Lorenzo Evans MD [facility] ([facility]) [address] [place] [address] 07/25/2024 15:21:59 07/27/2024 18:47:25 Cough 49473759 R05.9 Flu test was negative Viral uppe r respiratory tract infection 221911237 J06.9 Symptoms are consistent with viral upper respirator y infection. I discussed medication s that she can use that are safe in . Continue to push fluids. Continue to follow-up with PCP next week [id number] ALLISON PABNO [facility] ([facility]) [address] [place] [address] 07/30/2024 10:35:10 08/01/2024 14:30:30 [id number] LANDON LANZA [facility] ([facility]) [address] [place] [address] 08/07/2024 13:57:28 08/07/2024 15:07:45 Normal in multigravida 8790781431 58523 Z34.83 Gestation period, 35 weeks 26268705 Z3A.35 [id number] Simone Galindo [facility] ([facility]) [address] [place] [address] 08/16/2024 16:03:55 08/16/2024 17:18:24 Normal in multigravida 4701575313 38374 Z34.83 Gestation period, 36 weeks 19862039 Z3A.36 [id number] Breanna Evangelista MD [facility] ([facility]) [address] [place] [address] 08/20/2024 16:40:32 08/20/2024 18:36:47 Normal in multigravida 5428152638 24129 Z34.83 Gestation period, 37 weeks 65870634 Z3A.37 Health Concerns Section Related Observation LastModified by Organization Detai ls LastModified Time None Recorded Concern Status LastModified by Organization Details LastModified Time None Recorded Payers Encounter Date Sequence Insurance Name Policy Number Policy Lee Covered Member ID Lee Member ID Guarantor Name 08/20/2024 1 [employer] (MEDICAID REPLACEMENT - HMO) [id number] Khalida Delgadillo [id number] Khalida Delgadillo Notes Date Note Type Note Provider Name and Address Organization Details Recorded Time 08/20/2024 text/html ob routineRep orted bypatient.Associated Symptoms:no [...] chest pain has decreased Breanna Evangelista MD [address] [place] [address], [phone], [facility] 08/27/2024 19:18:50 08/27/2024 text/html ob routineRep orted [...] chest pain has decreased Breanna Evangelista MD [address] [place], [address], [facility], [facility] 08/27/2024 17:26:27 OBGyn Episode Ob Episode Information Episode Created Date Number of Fetuses Patient Bloodtype Patient rh Status Prepregnancy Weight lbs Domestic Partner Domestic Partner Phone Father Name Manufacturing Helper Status 02/16/20 24 1 O Negative Herbert [...] Code Not e Normal in multigravida 04/09/2024 [id number] Arina Calculation Initial Arina Date Initial Exam [...] Ultra Sound Latest Days Gestation 0 0 Pre- Flowsheet Flowsheet Date 02/16/2024 Martines Score Blood Edema Fundus Height Fundus Units Glucose Ketones Leukocytes Nitrite Labor Signs Protein Cervic Dilation Cervic Effacement Cervic Station Type Weight in lbs Pre/Post Dialysis Refused Weight 219.7555731558 BP Diastolic BP Location Tested BP Systolic BP Type 74 120 Fetus Heart Rate Present Fetus Movement Comments OBI mild cramping and abdomi nal pain Flowsheet Date 02/22/2024 Martines Score Blood Edema Fundus Height Fundus Units Glucose Ketones Leukocytes Nitrite Labor Signs Protein Cervic Dilation Cervic Effacement Cervic Station Type Weight in lbs Pre/Post Dialysis Refused Weight 218.375726754852 BP Diastolic BP Location Tested BP Systolic BP Type 80 140 Fetus Heart Rate Present Fetus Movement Comments Flowsheet Date 03/12/2024 Martines Score Blood Edema Fundus Height Fundus Units Glucose Ketones Leukocytes Nitrite Labor Signs Protein Cervic Dilation Cervic Effacement Cervic Station none none neg Type Weight in lbs Pre/Post Dialysis Refused Weight 217.32229172871 BP Diastolic BP Location Tested BP Systolic [...] Present Fetus Movement Comments Flowsheet Date 03/28/2024 Martnies Score Blood Edema Fundus Height Fundus Units [...] Type Weight in lbs Pre/Post Dialysis Refused 222.990015161854 BP Diastolic BP Location Tested BP Systolic [...] Type Weight in lbs Pre/Post Dialysis Refused 231.624824222470 BP Diastolic BP Location Tested BP Systolic BP Type 58 120 Fetus Heart Rate Present A 156 Present Fetus Movement A Yes Comments headaches, occasional palpit ations, heartburn Flowsheet Date 05/21/2024 Martines Score Blood Edema Fundus Height Fundus Units Glucose Ketones Leukocytes Nitrite Labor Signs Protein Cervic Dilation Cervic Effacement Cervic Station 25 cm none neg Type Weight in lbs Pre/Post Dialysis Refused 231.977921316661 BP Diastolic BP Location Tested BP Systolic [...] Weight in lbs Pre/Post Dialysis Refused Weight 233.400809411387 BP Diastolic BP Location Tested BP Systolic [...] Weight in lbs Pre/Post Dialysis Refused Weight 235.168925143114 BP Diastolic BP Location Tested BP Systolic [...] Weight in lbs Pre/Post Dialysis Refused Weight 240.392216245426 BP Diastolic BP Location Tested BP Systolic [...] Weight in lbs Pre/Post Dialysis Refused Weight 243.701358349110 BP Diastolic BP Location Tested BP Systolic [...] Weight in lbs Pre/Post Dialysis Refused Weight 243.086683070941 BP Diastolic BP Location Tested BP Systolic [...] Type Weight in lbs Pre/Post Dialysis Refused 240.322755313299 BP Diastolic BP Location Tested BP Systolic [...] Cervic Effacement Cervic Station none none Negative Memo Verduzco neg Type Weight in lbs Pre/Post Dialysis Refused Weight 244.62427507386 BP Diastolic BP Location Tested BP Systolic [...] Weight in lbs Pre/Post Dialysis Refused Weight 245.843272808390 BP Diastolic BP Location Tested BP Systolic [...] Weight in lbs Pre/Post Dialysis Refused Weight 247.919903522610 BP Diastolic BP Location Tested BP Systolic [...] Estim ated Date of Delivery false Thalassemia (Indian, South African, Mediterranean, Or Background): MCV < 80 false Neural Tube Defect (Meningomyelocele, Spina Bifi da, Or Anencephaly) false Congenital Heart Defect false Down Syndrome false Pancho-Sachs (eg, Confucianism, Cajun, Portuguese-Wittmann) f alse Kathy Disease false Sickle Cell Disease Or Trait () false Hemophilia Or Other Blood Disorders false Muscular Dystrophy false Cystic Fibrosis false Mcdonald's Chorea false Intellectual Disability/Autism false If Yes, [...]
--- OUTSIDE RECORDS SUMMARY | 2024-09-03 19:34 | XMS_ITS | Continuity of Care Document ---
Author Organization [facility] Ramón Arnold [facility] Sergio Galan, [facility] ([facility]) Address [address] [place] [address] Care Team Providers Care Cardroom Manager Name Role Phone BREANNA EVANGELISTA Primary Care [...] trime ster No observ ation record ed. [facility] [address] [place], [address], 04/29/2024 17:11:42 06/05/20 24 elect rocar diogr am No observ ation record ed. [email or web address] Not Available 2023 11:36:57 Result Notes None recorded. Problems Name Problem SNOMED Code Status Onset Date Resolution Date Notes Provider Name and Address Organization Details Recorded Time Palpitation s 13763273 Active 2023 Lorenzo Evans MD [address] [place], [address], [facility] 4 16:14:03 Normal in multigravid a 1801192730116 06 Active 2023 LANDON LANZA [facility], [facility] 4 18:33:04 Normal in multigravid a 6620584291915 06 Active 2023 LANDON rizo, [facility] 4 18:33:04 Cough 31273517 Active 2024 Lroenzo Evans MD [address] [place] [address], [phone], [facility] 5 15:49:05 Viral upper respiratory tract infection 751648526 Active 2024 Lorenzo Evans MD [address] [place] [address], [phone], [facility] 5 15:49:12 Problem Notes None recorded. Medical Equipment None Reported. Allergies Allergen ID Allergen Name Allergen Category Reaction Reaction Severity Criticality Documentation Date Start Date Code Code System Note Provider Name and Address Organization Details Recorded Time 95909 Augmentin medicatio n Not available Not available Not available 08/30/2023 64960 2 RxNorm TREBA NEUSCHWAN CHINMAY sallie [facility] 4 14:51:46 30849 Norflex medicatio n Not available Not available Not available 08/30/2023 76388 4 RxNorm TREBA NEUSCHWAN CHINMAY [facility], [facility] 4 14:52:14 80112 tramadol medicatio n Not available Not available Not available 02/16/2024 08924 RxNorm TREBA NEUSCHWAN CHINMAY [facility], [facility] 4 14:26:37 Medications Name Sig Start Date Stop Date Status Note LastModified by Organization Details LastModified Time vitd3 2000iusft [id number] take 1 capsule BY MOUTH EVERY DAY [...] 5 167.64 cm 39.9 kg/m2 98.55 % 190379. 12 g 99 % 99 % 116 /min 18 /min 98.8 [degF] 120 mm[Hg] 72 mm[Hg] HARVINDER MOY [facility] 5 17:04:46 Social History Question Answer Notes LastModified by Organizat ion Details LastModified Time Tobacco Smoking Status Never Smoker HARVINDER rizo [facility] 08/30/2023 14:55:10 What Is Your Level [...] unspecified formulation 6 completed TREBA NEUSCHWANDER null, [facility] 08/30/2023 14:51:27 Hib, unspecified formulation 5 completed TREBA NEUSCHWANDER null, [facility] 08/30/2023 14:51:27 Hib, unspecified formulation 5 completed TREBA NEUSCHWANDER null, [facility] 08/30/2023 14:51:27 meningococcal B, OMV 2 completed TREBA NEUSCHWANDER null, [facility] 08/30/2023 14:51:27 meningococcal B, OMV 2 [facility] 08/30/2023 14:51:27 meningococcal ACWY, unspecified formulation 7 completed TREBA NEUSCHWANDER [facility] 08/30/2023 14:51:27 MMR 9 completed TREBA NEUSCHWANDER [facility] 08/30/2023 14:51:27 MMR 6 completed TREBA NEUSCHWANDER [facility] 08/30/2023 14:51:27 meningococcal conjugate quadrivalent, MenACWY-TT (MCV4) 2 completed [facility] 08/30/2023 14:51:27 pneumococcal conjugate PCV 7 5 completed TREBA NEUSCHWANDER [facility], [facility] 08/30/2023 14:51:27 Tdap 7 completed [facility] 08/30/2023 14:51:27 varicella 6 completed TREBA NEUSCHWANDER null, [facility] 08/30/2023 14:51:27 varicella 9 completed TREBA NEUSCHWANDER null, [facility] 08/30/2023 14:51:27 Hep B, unspecified formulation 5 completed TREBA NEUSCHWANDER null, [facility] 08/30/2023 14:51:27 Hep B, unspecified formulation 5 completed TREBA NEUSCHWANDER null, [facility] 08/30/2023 14:51:27 Hep B, unspecified formulation 5 completed TREBA NEUSCHWANDER null, [facility] 08/30/2023 14:51:27 HPV, unspecified formulation 8 completed TREBA NEUSCHWANDER null, [facility] 08/30/2023 14:51:27 HPV, unspecified formulation 7 completed TREBA NEUSCHWANDER null, [facility] 08/30/2023 14:51:27 pneumococcal, unspecified formulation 9 completed TREBA NEUSCHWANDER null, [facility] 08/30/2023 14:51:27 pneumococcal, unspecified formulation 6 completed TREBA NEUSCHWANDER null, [facility] 08/30/2023 14:51:27 pneumococcal, unspecified formulation 5 completed TREBA NEUSCHWANDER null, [facility] 08/30/2023 14:51:27 polio, unspecified formulation 9 completed TREBA NEUSCHWANDER null, [facility] 08/30/2023 14:51:27 polio, unspecified formulation 5 completed TREBA NEUSCHWANDER null, [facility] 08/30/2023 14:51:27 polio, unspecified formulation 5 completed TREBA NEUSCHWANDER null, [facility] 08/30/2023 14:51:27 Hib (PRP-T) 5 completed TREBA NEUSCHWANDER null, [facility] 08/30/2023 14:51:27 DTaP, unspecified formulation 9 completed TREBA NEUSCHWANDER null, [facility] 08/30/2023 14:51:27 DTaP, unspecified formulation 5 completed TREBA NEUSCHWANDER null, [facility] 08/30/2023 14:51:27 DTaP, unspecified formulation 6 completed TREBA NEUSCHWANDER null, [facility] 08/30/2023 14:51:27 DTaP, unspecified formulation 5 completed TREBA NEUSCHWANDER null, [facility] 08/30/2023 14:51:27 DTaP-Hep B-IPV 5 completed TREBA NEUSCHWANDER null, [facility] 08/30/2023 14:51:27 Hep A, unspecified formulation 7 completed TREBA NEUSCHWANDER null, [facility] 08/30/2023 14:51:27 Hep A, unspecified formulation 6 completed TREBA NEUSCHWANDER null, [facility] 08/30/2023 14:51:27 Past Encounters Encounter ID Performer Location Encounter Start Date Encounter Closed Date Diagnosis/Indication Diagnosis SNOMED-CT Code Diagnosis ICD10 Code Diagnosis Note [id number] ALLISON PABON [facility] ([facility]) [address] [place] [phone] 07/30/2024 10:35:10 08/01/2024 14:30:30 [id number] LANDON LANZA [facility] ([facility]) [address] [place] [phone] 08/07/2024 13:57:28 08/07/2024 15:07:45 Normal in multigravida 4029610452 97596 Z34.83 Gestation period, 35 weeks 60408410 Z3A.35 [id number] Simone Galindo [facility] ([facility]) [address] [place] [phone] 08/16/2024 16:03:55 08/16/2024 17:18:24 Normal in multigravida 2879129307 78871 Z34.83 Gestation period, 36 weeks 87326629 Z3A.36 [id number] Breanna Evangelista MD [facility] ([facility]) [address] [place] [phone] 08/20/2024 16:40:32 08/20/2024 18:36:47 Normal in multigravida 3261597944 79942 Z34.83 Gestation period, 37 weeks 60478411 Z3A.37 [id number] Breanna Evangelista MD [facility] ([facility]) [address] [place] [phone] 08/27/2024 16:55:30 08/27/2024 17:26:35 Normal in multigravida 2552603731 99428 Z34.83 Gestation period, 38 weeks 69160151 Z3A.38 Health Concerns Section Related Observation LastModified by Organization Detai ls LastModified Time None Recorded Concern Status LastModified by Organization Details LastModified Time None Recorded Payers Encounter Date Sequence Insurance Name Policy Number Policy Lee Covered Member ID Lee Member ID Guarantor Name 08/27/2024 1 [employer] [place]AC[place] - [place]MO) [id number] Khalida Delgadillo [id number] Khalida Delgadillo Notes Date Note Type Note Provider Name and Address Organization Details Recorded Time 08/27/2024 text/html jr ob routineRep orted bypatient.Associated Symptoms:normal movement; no [...] chest pain has decreased Breanna Evangelista MD [address] [place] [address], [phone], [facility], [place] 08/27/2024 17:26:27 OBGyn Episode Ob Episode Information Episode Created Date Number of Fetuses Patient Bloodtype Patient rh Status Prepregnancy Weight lbs Domestic Partner Domestic Partner Phone Father Name Music Engraver Status 02/16/20 24 1 O Negative Herbert [...] Code Not e Normal in multigravida 04/09/2024 [id number] Arina Calculation Initial Arina Date Initial Exam [...] 0 0 Pre- Flowsheet Flowsheet Date 02/16/2024 Martnies Score Blood Edema Fundus Height Fundus Units Glucose Ketones Leukocytes Nitrite Labor Signs Protein Cervic Dilation Cervic Effacement Cervic Station Type Weight in lbs Pre/Post Dialysis Refused Weight 219.7834550864 BP Diastolic BP Location Tested BP Systolic BP Type 74 120 Fetus Heart Rate Present Fetus Movement Comments OBI mild cramping and abdomi nal pain Flowsheet Date 02/22/2024 Martines Score Blood Edema Fundus Height Fundus Units Glucose Ketones Leukocytes Nitrite Labor Signs Protein Cervic Dilation Cervic Effacement Cervic Station Type Weight in lbs Pre/Post Dialysis Refused Weight 218.085137746637 BP Diastolic BP Location Tested BP Systolic BP Type 80 140 Fetus Heart Rate Present Fetus Movement Comments Flowsheet Date 03/12/2024 Martines Score Blood Edema Fundus Height Fundus Units Glucose Ketones Leukocytes Nitrite Labor Signs Protein Cervic Dilation Cervic Effacement Cervic Station none none neg Type Weight in lbs Pre/Post Dialysis Refused Weight 217.79883364292 BP Diastolic BP Location Tested BP Systolic [...] Type Weight in lbs Pre/Post Dialysis Refused 222.464213557683 BP Diastolic BP Location Tested BP Systolic [...] Type Weight in lbs Pre/Post Dialysis Refused 231.288273425999 BP Diastolic BP Location Tested BP Systolic BP Type 58 120 Fetus Heart Rate Present A 156 Present Fetus Movement A Yes Comments headaches, occasional palpit ations, heartburn Flowsheet Date 05/21/2024 Martines Score Blood Edema Fundus Height Fundus Units Glucose Ketones Leukocytes Nitrite Labor Signs Protein Cervic Dilation Cervic Effacement Cervic Station 25 cm none neg Type Weight in lbs Pre/Post Dialysis Refused 231.884729894635 BP Diastolic BP Location Tested BP Systolic [...] Weight in lbs Pre/Post Dialysis Refused Weight 233.506401875478 BP Diastolic BP Location Tested BP Systolic BP Type 72 128 sitting Fetus Heart Rate Present A 146 Present Fetus Movement A Yes Comments edema feet after work, heada thiago, glucose today, order sent to [facility] for Rhogam shot Flowsheet Date 06/18/2024 Martines Score Blood Edema Fundus Height Fundus Units Glucose Ketones Leukocytes Nitrite Labor Signs Protein Cervic Dilation Cervic Effacement Cervic Station 31 cm none trace Negative neg Type Weight in lbs Pre/Post Dialysis Refused Weight 235.987253175377 BP Diastolic BP Location Tested BP Systolic [...] Weight in lbs Pre/Post Dialysis Refused Weight 240.559466855920 BP Diastolic BP Location Tested BP Systolic [...] Weight in lbs Pre/Post Dialysis Refused Weight 243.152695055766 BP Diastolic BP Location Tested BP Systolic [...] Weight in lbs Pre/Post Dialysis Refused Weight 243.299043555130 BP Diastolic BP Location Tested BP Systolic [...] Type Weight in lbs Pre/Post Dialysis Refused 240.088316119441 BP Diastolic BP Location Tested BP Systolic [...] Weight in lbs Pre/Post Dialysis Refused Weight 244.07650803399 BP Diastolic BP Location Tested BP Systolic [...] Weight in lbs Pre/Post Dialysis Refused Weight 245.804142168574 BP Diastolic BP Location Tested BP Systolic [...] Weight in lbs Pre/Post Dialysis Refused Weight 247.592838559693 BP Diastolic BP Location Tested BP Systolic [...] Estim ated Date of Delivery false Thalassemia (Kittitian, Solomon Islander, Mediterranean, Or Background): MCV < 80 false Neural Tube Defect (Meningomyelocele, Spina Bifi da, Or Anencephaly) false Congenital Heart Defect false Down Syndrome false Pancho-Sachs (eg, Christian, Cajun, Mongolian-[place]) f alse Kathy Disease false Sickle Cell Disease Or Trait () false Hemophilia Or Other Blood Disorders false Muscular Dystrophy false Cystic Fibrosis false Plymouth's Chorea false Intellectual Disability/Autism false If Yes, [...]
[2024-09-03 19:42] VITALS: BP 116/56; PULSE 108
[2024-09-03 20:00] VITALS: RESP 18; TEMP 37
[2024-09-03 20:06] VITALS: BMI 41.5
[2024-09-03] MEDS: miSOPROStol 100 mcg tablet 25 MCG VAGINAL (20:17)
[2024-09-03 20:18] LABS: Basophils % 0.3 %; Eosinophils # 0.1 10^3/uL (0.0-0.8); Eosinophils % 0.4 %; Hematocrit 35.6 % (36-47); Lymphocytes # 2.2 10^3/uL (1.5-6.5); Lymphocytes % 16.8 %; Mean Corpuscular HGB Conc 32.9 g/dL (30-55); Mean Corpuscular Hemoglobin 28.7 pg (27-33); Mean Corpuscular Volume 87.5 fl (85-98); Monocytes # 0.5 10^3/uL (0.2-0.9); Monocytes % 4.1 %; Neutrophils # 9.95 10^3/uL (1.8-8.0); Neutrophils % 77.8 %; Nucleated Red Blood Cells % 0 %; Platelet Count 284 10^3/cmm (157-399); Red Blood Count 4.07 10^6/uL (3.85-5.65); Red Cell Distribution Width 14.8 % (12.1-15.1)
[2024-09-03 20:21] VITALS: BP 116/69; PULSE 104
[2024-09-03 20:36] VITALS: BP 126/75; PULSE 102
[2024-09-03] MEDS: propranolol 20 mg Tablet PO (20:49)
[2024-09-03 21:55] VITALS: BP 131/76; PULSE 93
[2024-09-03 23:41] VITALS: BP 122/65; PULSE 98
[2024-09-04] VITALS (49 sets, daily range): BP systolic 99–148; BP diastolic 55–85; PULSE 72–125; RESP 18–20; TEMP 35.7–37; O2SAT 96–100
[2024-09-04] MEDS: miSOPROStol 100 mcg tablet 25 MCG VAGINAL ×2 (00:25→09:34)
[2024-09-04] MEDS: calcium carbonate 500 mg Chew Tablet 1000 MG PO ×3 (02:04→12:46)
[2024-09-04] MEDS: sodium chloride 0.9% 1,000 ML 999 ML IV (04:13)
--- NOTE | 2024-09-04 08:02 | PM.OPHPUD ---
Labor & Delivery H&P Update Date of Procedure: September 04, 2024 Date H&P Performed: 09/03/24 Changes to previous documentation: None Admission Diagnosis: 18-year-old 1 at 39 weeks estimated gestational age with macrosomia per multiple choice sounds Other information: The patient is a otherwise healthy 39-week female who had a unremarkable with consistent care. Her ultrasounds did demonstrate that her baby consistently measured at least 2 weeks ahead. That led to our discussion for how he wanted to manage the delivery of the . Her blood type is O+. Her antibody screen was negative. She received RhoGAM shot at approximately 28 weeks. Her glucose screen was negative. She is rubella immune. She is GBS negative. The remainder of her infectious disease profile is within normal limits. Related Problem List Diagnoses (1) 39 weeks gestation of : (2) Macrosomia affecting management of mother: A&P Assessment and plan (1) 39 weeks gestation of : Status: Acute (2) Macrosomia affecting management of mother: Previously in our office we had a long discussion regarding the pros and cons of induction considering the presumed diagnosis of macrosomia her infant. We discussed the questionable benefit of induction in the case of macrosomia. We also discussed the risk of induction, including the increased risk of . At the end of our discussion, the patient decided that she wanted to proceed with induction and to see how well she did. As induction proceeds, we will determine whether or not we want to continue, or whether she would like to go home. Status: Acute PDMP PDMP Reviewed: Not Reviewed
[2024-09-04] MEDS: propranolol 20 mg Tablet PO ×2 (08:11→21:04)
[2024-09-04] MEDS: ondansetron 2 mg/ML SDV 2 mL 4 MG IVP (11:16)
[2024-09-04] MEDS: sertraline 100 mg Tablet PO (12:46)
[2024-09-04] MEDS: fentaNYL 50 mcg/mL INJ 2mL IVP (13:46)
[2024-09-04] MEDS: lactated ringers 1,000 ML 999 ML IV (13:50)
--- NOTE | 2024-09-04 14:30 | ANES.PREANE2 ---
Pre-Anesthetic Assessment Height/Weight: Height 5 ft 5 in Weight 250 lb Temp Pulse Resp BP Pulse Ox O2 Del Method 96.3 F L 86 20 H 145/79 100 Room Air 09/04/24 12:54 09/04/24 15:06 09/04/24 13:46 09/04/24 15:06 09/04/24 15:03 09/04/24 02:05 Preop Diagnosis: Active labor Was Beta Jeanne taken within 24 hours: Yes Was Clonidine taken within 24 hours: N/A Social No alcohol and No tobacco Exam alert, oriented x 3, clear to auscultation bilaterally and regular rate & rhythm Airway Submandibular: within normal limits Cervical ROM: within normal limits Mallampati: Class II Dentition: full Anesthetic Plan ASA status: 3 Anesthesia: Regional (specify below) Other: No prior issues with anesthesia NPO since this morning G1, P0, hypertension during on propranolol Patient states that she has scoliosis Patient has asthma, controlled with inhalers GERD on Pepcid BMI 41.6 Labs reviewed acceptable for procedure Patient accepts risk of epidural placement Medications/Allergies Home Medications ?Medication ?Instructions ?Recorded ?Confirmed ?Last Taken ?Type docosahexaenoic acid 200 mg 200 mg PO DAILY 02/21/24 09/03/24 09/03/24 History capsule ( DHA) sertraline 50 mg tablet 50 mg PO DAILY 02/21/24 09/03/24 09/03/24 History cetirizine 10 mg tablet 10 mg PO DAILY 06/01/24 09/03/24 09/03/24 History propranolol 40 mg tablet 40 mg PO BID 06/01/24 09/03/24 09/03/24 History famotidine 20 mg PO BID 08/17/24 09/03/24 09/03/24 History Allergies Allergy/AdvReac Type Severity Reaction Status Date / Time amoxicillin (From Augmentin) Allergy rash Verified 09/03/24 20:42 clavulanic acid (From Allergy rash Verified 09/03/24 20:42 Augmentin) orphenadrine (From Norflex) Allergy ALGY-Rash Verified 09/03/24 20:42 tramadol AdvReac Intermediate ADR-Migrain Verified 09/03/24 20:42 e Current Medications Generic Name Dose Route Start Last Admin Trade Name Freq PRN Reason Stop Dose Admin Calcium Carbonate 1,000 mg 09/03/24 20:00 09/04/24 12:46 Calcium Carbonate 500 Mg Chew Tablet PO 1,000 mg Q4H PRN Administration Heartburn/Indigestion (Use 1st) Fentanyl 25 - 100 mcg 09/03/24 20:00 09/04/24 13:46 Fentanyl 50 Mcg/Ml Inj 2ml IVP 25 mcg Q1H PRN Administration SEVERE PAIN Sodium Chloride 1,000 mls @ 999 mls/hr 09/03/24 20:00 09/04/24 04:45 Sodium Chloride 0.9% IV 0 mls/hr .Q1H1M PRN Infusion Per L&D Rescitation Protocol Dextrose/Lactated Ringer's 1,000 mls @ 125 mls/hr 09/03/24 20:00 09/04/24 15:01 Dextrose 5%-Lactated Ringers IV 125 mls/hr .Q8H GIOVANNI Administration Ropivacaine 100 mg in 50 mls @ 10 mls/hr 09/04/24 14:00 09/04/24 14:55 Naropin Syringe EPIDURAL 10 mls/hr .Q5H GIOVANNI Administration Ondansetron HCl 4 mg 09/03/24 20:00 09/04/24 11:16 Ondansetron 2 Mg/Ml Sdv 2 Ml IVP 4 mg Q4H PRN Administration NAUSEA AND VOMITING Propranolol HCl 20 mg 09/03/24 21:00 09/04/24 08:11 Propranolol 20 Mg Tablet PO 20 mg BID GIOVANNI Administration Sertraline HCl 100 mg 09/04/24 09:00 09/04/24 12:46 Sertraline 100 Mg Tablet PO 100 mg DAILY GIOVANNI Administration PFSH Anesthesia Medical History No pertinent family history Surgical History No pertinent past surgical history Family History Other Asthma Migraines Social History Smoking and tobacco/nicotine status: never used tobacco/nicotine Second hand smoke exposure: Yes Alcohol intake: never Substance/Drug Use: never Adopted: No Highest education level completed: 11th Grade Pets and animals: Yes Pets & animals: dog(s) Female Reproductive History : 2 Data Anesthesia 09/03/24 19:50 Short CBC 09/03/24 Range/Units 19:50 WBC 12.80 (4.5-13.0) 10^3/uL Hgb 11.70 L (12.4-14.8) g/dL Hct 35.6 L (36-47) % MCV 87.5 (85-98) fl Plt Count 284 (157-399) 10^3/cmm Neut % (Auto) 77.8 % Neut # (Auto) 9.95 H (1.8-8.0) 10^3/uL Blood Bank 09/03/24 19:50 Blood Type O Negative Rho(D) Type Rh negative Antibody Screen Negative Cardiac Studies: Echocardiogram 02/13/24 Holter Monitor 06/04/24
[2024-09-04] MEDS: ROPivacaine syringe 100 MG/50 ML SYRINGE 10 MG EPIDURAL (14:55)
[2024-09-04] MEDS: dextrose 5%-lactated ringers 1,000 ML 125 ML IV (15:01)
--- NOTE | 2024-09-04 15:13 | P.ANES_ITS ---
Anesthesia Procedures Procedure/Date: 09/04/24 Epidural: Time Out Performed: Yes Consents Signed: Procedure Consent Consent: requested by attending/covering physician and from patient Lumbar Level: L3-L4 Epidural position: sitting Epidural procedure: sterile prep of area, 1% lidocaine to numb the area, 18 g needle, negative for paresthesia p assed, neg for paresthesia, test dose given, 1.5% xylocaine 1:200k epi, 0.2% Ropivacaine bolus ml, placed PCEA, no systemic response, sterile dressing applied and L.U.D. no apparent complications Additional Comments: CSE performed. Loss of resistance received at 8 cm. A 27-gauge spinal needle was introduced after [id number]-[id number]. 1 cc of 0.25% bupivacaine was then injected in the spinal space. Spinal needle was then removed. Epidural catheter was threaded into the epidural space to 15 cm. Epidural ropivacaine 0.2% set to 10 mL/h
[2024-09-04] MEDS: oxytocin 30 UNIT/500 ML BAG 600 UNIT IV (16:25)
--- NOTE | 2024-09-04 17:19 | P.PCNOB_ITS ---
Delivery Note: Date of delivery: September 04, 2024 Pre-delivery diagnoses: 18-year-old 1 at 39 weeks estima shelley gestational age Post-delivery diagnoses: Status post spontaneous vaginal delivery Procedure: Spontaneous vaginal delivery Delivering Physician: Tony Evangelista Estimated blood loss (mL): 250 Pre-Delivery Course: The patient presented to the hospital for induction due to ultrasound evidence o f macrosomia. The patient was induced with Cytotec 25 mcg x 3. An amniotomy was performed in the morning. An epidural was placed. She progressed complete without difficulty. Delivery: DELIVERY: The patient progressed to complete without difficulty. She delivered a male with a weight of 8 pounds 5 ounces with Apgars of 7, 8. The baby was delivered from the HILARY position and placed on the mother's abdomen. The cord was then clamped and cut. There was no nuchal cord. There was no meconium. The placenta and 3 vessel cord were delivered intact shortly thereafter. The perineum and vaginal vault were carefully examined. A second-degree posterior midline tear was noted which also extended up onto the labia majora bilaterally. It was repaired in usual fashion with 3-0 Vicryl. Both the mother and the baby were in stable condition. Post-Delivery Status: Good History History History 1 Term 1 Miscarriages/Ectopic Living Children 1 A&P Assessment and plan (1) 39 weeks gestation of : (2) Spontaneous vaginal delivery: I anticipate routine care. PDMP PDMP Reviewed: Not Reviewed Coding Level of Care Code Acute Code for Chg Fwd Diagnoses 39 weeks gestation of Z3A.39 Spontaneous vaginal delivery O80
--- OUTSIDE RECORDS SUMMARY | 2024-09-04 18:01 | XMS_ITS | Clinical Summary ---
Author Organization [facility] Address [address] [address] Phone Care Team Providers Care Delinquent Account Clerk Name Role Phone Unavailable Primary Care Provider [...]
--- OUTSIDE RECORDS SUMMARY | 2024-09-04 18:01 | XMS_ITS | Clinical Summary ---
Author Organization [facility] Address [address] [address] Phone Care Team Providers Care Systems Support Engineer Name Role Phone Palak Sanchez CASE RESOLUTION SPECIALIST Primary Care Provider [phone] Allergies No known active allergies Social History [...] patient's age to complete this topic Insurance [employer] BLUE ACCESS/TRUE BLUE PPO BS BLUE ACCESS/TRUE BLUE PPO Care Teams Systems Support Engineer Relationship Specialty Start Date End Date Palak Sanchez NP [address] [place] [address] PCP - General NURSE PRACTITIONER 03/01/21
[2024-09-04] MEDS: lanolin oint 7 gm 1 APPLIC TOPICAL (18:27)
[2024-09-04] MEDS: benzocaine-menthol 78 gm Canister 1 SPRAY TOPICAL (18:27)
[2024-09-04] MEDS: docusate sodium 100 mg Capsule PO (18:27)
[2024-09-04] MEDS: ibuprofen 800 mg tablet PO (21:04)
[2024-09-05 00:30] VITALS: BP 106/82; PULSE 81; RESP 18; TEMP 36.7; O2SAT 100
[2024-09-05 04:00] VITALS: BP 111/62; PULSE 98; RESP 18; TEMP 36.8; O2SAT 96
[2024-09-05] MEDS: acetaminophen 500 mg Tablet 1000 MG PO (04:07)
[2024-09-05 05:00] LABS: Mean Corpuscular HGB Conc 32.1 g/dL (30-55); Mean Corpuscular Hemoglobin 28.5 pg (27-33); Mean Corpuscular Volume 88.6 fl (85-98); Mean Platelet Volume 10.9 fL (7.4-10.4); Platelet Count 247 10^3/cmm (157-399); Red Blood Count 3.16 10^6/uL (3.85-5.65); Red Cell Distribution Width 14.9 % (12.1-15.1); White Blood Count 14.79 10^3/uL (4.5-13.0)
--- NOTE | 2024-09-05 05:49 | PM.OBGYDC ---
Discharge Providers NUMERICAL TOOL PROGRAMMER Date of Admission: 09/03/24 19:29 Date of Discharge: 09/05/24 Attending Provider at Admission: Tony Evangelista MD Attending Provider at Discharge: Tony Evangelista MD Diagnoses at Discharge Discharge Diagnosis (1) 39 weeks gestation of : Status: Acute (2) Macrosomia affecting management of mother: Status: Acute Reason for Visit Reason for Visit: Induction Hospital Course Hospital Course The patient presented to the hospital for induction. She was placed on Cytotec 25 mcg x 3. An epidural was placed. She progressed to complete and had an unremarkable delivery of a healthy appearing male . Her course has been unremarkable. Her bleeding has been within normal limits. She has breast-fed well. There have been no concerns. Information Peripartum Data: Infant Delivery Method: Vaginal Physical Exam Narrative: The patient is alert. She appears comfortable. Her heart has a regular rate and rhythm with no murmurs appreciated. Lungs are clear to auscultation bilaterally. Her fundus is firm and below the umbilicus. Urinary Catheter Management: Sanabria Latex Free: Cath Placed During This Visit: yes, but has since been removed by the nurse Reason for Continuing Indwelling Catheter: Decision to DC Catheter Urinary Catheter Date of Insertion: 09/04/24 Urinary Catheter Time of Insertion: 15:50 Date Urinary Catheter Removed: 09/04/24 Time Urinary Catheter Discontinued: 16:06 History History History 1 Term 1 Miscarriages/Ectopic Living Children 1 Discharge Data Studies Completed and Pending Laboratory Results WBC 14.79 10^3/uL (4.5-13.0) H 09/05/24 04:50 RBC 3.16 10^6/uL (3.85-5.65) L 09/05/24 04:50 Hgb 9.00 g/dL (12.4-14.8) L 09/05/24 04:50 Hct 28.0 % (36-47) L 09/05/24 04:50 MCV 88.6 fl (85-98) 09/05/24 04:50 MCH 28.5 pg (27-33) 09/05/24 04:50 MCHC 32.1 g/dL (30-55) 09/05/24 04:50 RDW 14.9 % (12.1-15.1) 09/05/24 04:50 Plt Count 247 10^3/cmm (157-399) 09/05/24 04:50 MPV 10.9 fL (7.4-10.4) H 09/05/24 04:50 Neut % (Auto) 77.8 % 09/03/24 19:50 Lymph % (Auto) 16.8 % 09/03/24 19:50 [place] % (Auto) 4.1 % 09/03/24 19:50 Eos % (Auto) 0.4 % 09/03/24 19:50 Baso % (Auto) 0.3 % 09/03/24 19:50 Neut # (Auto) 9.95 10^3/uL (1.8-8.0) H 09/03/24 19:50 Lymph # (Auto) 2.2 10^3/uL (1.5-6.5) 09/03/24 19:50 [place] # (Auto) 0.5 10^3/uL (0.2-0.9) 09/03/24 19:50 Eos # (Auto) 0.1 10^3/uL (0.0-0.8) 09/03/24 19:50 Baso # (Auto) 0.0 10^3/uL (0.0-0.1) 09/03/24 19:50 Nucleated RBC % (auto) 0 % 09/03/24 19:50 Nucleated RBCs # 0.0 /100WBC 09/03/24 19:50 Blood Type O Negative 09/03/24 19:50 Rho(D) Type Rh negative 09/03/24 19:50 Antibody Screen Negative 09/03/24 19:50 Vitals Last Vital Signs Temp 98.1 F 09/05/24 00:30 Pulse 81 09/05/24 00:30 Resp 18 09/05/24 00:30 BP 106/82 09/05/24 00:30 Pulse Ox 100 09/05/24 00:30 O2 Del Method Room Air 09/05/24 00:30 Results Labs OB ([facility]): Blood Type O Negative 09/03/24 Antibody Screen Negative 09/03/24 Hct 28.0 % (36-47) L 09/05/24 Hgb 9.00 g/dL (12.4-14.8) L 09/05/24 Rho(D) Type Rh negative 09/03/24 Plt Count 247 10^3/cmm (157-399) 09/05/24 Hep Bs Antibody > 1000.0 (11.5-1000) H 08/17/23 Rubella IgG Antibody 228.4 IU/mL (0.0-10.0) H 05/12/23 TSH 2.11 uIU/mL (0.27-4.20) 01/16/24 Free T4 1.10 ng/dL (0.93-1.60) 01/16/24 C.trachomatis RNA (TMA) Not detected (NOT DETECTED) 05/09/23 N.gonorrhoeae RNA (TMA) Not detected (NOT DETECTED) 05/09/23 T. vaginalis Amp RNA Not detected (NOT DETECTED) 05/09/23 Chlamydia/GC Comment See note 05/09/23 VZV IgG Antibody 1063.00 index 08/17/23 HCG, Qual Positive (Negative) H 01/16/24 Discharge Plan Discharge Patient Disposition: Home Condition: Stable Prescriptions: New ibuprofen 800 mg Tablet 800 mg PO TID Qty: 45 0RF Continued DHA 200 mg capsule 200 mg PO DAILY sertraline 50 mg tablet 50 mg PO DAILY cetirizine 10 mg Tablet 10 mg PO DAILY propranolol 40 mg Tablet 40 mg PO BID Discontinued famotidine 20 mg PO BID Discharge Orders: Discharge Order (Routine); Ordered 09/05/24 Ordered By: Tony Evangelista Discharge Diet: Usual diet Discharge Activity: Limit activity as instructed Patient Instructions: Opioid Safety Discharge Attestations NUMERICAL TOOL PROGRAMMER Time Spent in Discharge Care*: less than 30 min Coding Level of Care Code Acute Code for Chg Fwd Diagnoses 39 weeks gestation of Z3A.39 Macrosomia affecting management of mother O36.60X0
[2024-09-05 09:20] VITALS: BP 110/79; PULSE 102; RESP 17; TEMP 36.8
[2024-09-05] MEDS: ibuprofen 800 mg tablet PO ×2 (09:40→16:42)
[2024-09-05] MEDS: PRENATAL VIT NO.130/IRON/FOLIC 1 EACH TABLET PO (09:40)
[2024-09-05] MEDS: docusate sodium 100 mg Capsule PO (09:40)
--- NOTE | 2024-09-05 10:31 | ANE.PACU2 ---
Inpatient post-anesthesia follow up: Airway intact: Yes Vital signs: Temperature 98.2 F Pulse Rate 98 Respiratory Rate 16 Blood Pressure 110/69 Pulse Oximetry 98 Oxygen Delivery Me thod Room Air Oxygen Flow Rate Fraction of Inspir ed Oxygen Hydration adequate: Yes Nausea and vomiting: No Pain level: 1 Mental status: Baseline Epidural Start/End: Epidural Start Date: 09/04/24 Epidural Start Time: 14:47 Epidural End Date: 09/04/24 Epidural End Time: 18:42
[2024-09-05] MEDS: propranolol 20 mg Tablet PO (10:55)
[2024-09-05 16:42] VITALS: BP 114/73; PULSE 98; RESP 17
[2024-09-05 18:30] VITALS: BP 110/69; PULSE 98; RESP 16; TEMP 36.8
[2024-09-05 18:55] VITALS: BP 110/69; PULSE 98; RESP 16; TEMP 36.8; O2SAT 98
== END 2024-09-05 18:55 | disposition home or self-care (01) | DRG 807 ==
PROVIDERS: Admitting Provider Family Medicine; Visit Provider Family Medicine
DX: O99.214 Obesity complicating childbirth (principal); Z37.0 Single live birth; E66.01 Morbid (severe) obesity due to excess calories; O13.4 Gestational [pregnancy-induced] hypertension without significant proteinuria, complicating childbirth; O70.1 Second degree perineal laceration during delivery; Z3A.39 39 weeks gestation of pregnancy; O75.89 Other specified complications of labor and delivery; J45.909 Unspecified asthma, uncomplicated; K21.9 Gastro-esophageal reflux disease without esophagitis; O36.63X0 Maternal care for excessive fetal growth, third trimester, not applicable or unspecified; Z88.1 Allergy status to other antibiotic agents; Z88.5 Allergy status to narcotic agent
CPT/HCPCS: 36415; 51702; 59409; 85025; 85027; 86850; 86900; 96374; G0379; J2405; J2590; J2795; J3010; J3490; J7030; J7120; J7121